=== PATIENT | male | born 1940 | race Caucasian/White ===

== ENCOUNTER → 2022-01-25 | Outpatient (CLI) | payer MEDICARE ==
--- NOTE | 2022-01-26 07:57 | US ---
EXAMINATION TYPE: US scrotum with doppler. Grayscale and color Doppler Duplex imaging performed of shruti maciel scrotum. DATE OF EXAM: 01/25/2022 COMPARISON: NONE CLINICAL HISTORY: N49.2 swelling of scrotum. Patient states feeling a lump left lateral teste x 3 wee ks. EXAM MEASUREMENTS: TESTICLES: Right Testicle: 3.2 x 3.6 x 3.1 cm Left Testicle: 4.1 x 3.3 x 2.4 cm EPIDIDYMIS HEAD: Right Epididymis: 0.7 x 0.7 x 0.7 cm Left Epididymis: 1.2 x 0.9 x 1.2 cm Doppler performed to assess for testicular vascularity; good bilateral color flow and waveforms are s een. There is no evidence of testicular torsion. Presence of hydroceles: Right Presence of varicoceles: Left inferior Right epididymal cyst = 0.3 x 0.2 x 0.2 cm. Left epididymis cyst = 0.6 x 0.6 x 0.5 cm. At area of patient concern, epididymal head and cyst was visualized IMPRESSION: Epididymal head cysts. Otherwise unremarkable study.
== END | disposition home or self-care (01) ==
LOC: RADUSWWP 15:06
PROVIDERS: ATTEND Internal Medicine
DX: N50.3 Cyst of epididymis (principal)
CPT/HCPCS: 76870; 93975

== ENCOUNTER → 2022-06-08 | Outpatient (CLI) | payer MEDICARE ==
--- NOTE | 2022-06-08 13:53 | US ---
EXAMINATION TYPE: US scrotum with doppler. Grayscale and color Doppler Duplex imaging performed of t he scrotum. DATE OF EXAM: 06/08/2022 COMPARISON: NONE CLINICAL HISTORY: N50.89 DISORDERS OF THE MALE GENITAL ORGANS. EXAM MEASUREMENTS: TESTICLES: Right Testicle: 3.6 x 1.9 x 2.1 cm Left Testicle: 4.1 x 2.3 x 3.3 cm EPIDIDYMIS HEAD: Right Epididymis: 0.9 x 0.7 cm, small cysts noted bilaterally. Left Epididymis: 1.0 x 0.9 cm Doppler performed to assess for testicular vascularity; good bilateral color flow and waveforms are s een. There is no evidence of testicular torsion. Presence of hydroceles: small amount of fluid around right testicle. Presence of varicoceles: none appreciated. IMPRESSION: 1 right-sided epididymal cyst. 2. Small amount of right-sided hydrocele.
== END | disposition home or self-care (01) ==
LOC: RADUSWWP 09:26
PROVIDERS: ATTEND Urology
DX: N50.3 Cyst of epididymis (principal); N43.3 Hydrocele, unspecified; N50.89 Other specified disorders of the male genital organs
CPT/HCPCS: 76870; 93975

== ENCOUNTER 2022-12-25 10:36 | Inpatient (IN) | payer MEDICARE ==
[2022-12-25 11:17] LABS: Basophils % (A) 0 %; Eosinophils # (A) 0.3 k/uL (0-0.7); Eosinophils % (A) 3 %; HCT 44.4 % (39.0-53.0); HGB 15.1 gm/dL (13.0-17.5); Lymphocytes # (A) 2.9 k/uL (1.0-4.8); Lymphocytes % (A) 29 %; MCH 36.6 pg (25.0-35.0); MCHC 34.1 g/dL (31.0-37.0); MCV 107.4 fL (80.0-100.0); Macrocytosis Moderate; Mean Platelet Volume 8.8; Monocytes # (A) 0.4 k/uL (0-1.0); Monocytes % (A) 5 %; Neutrophils % (A) 61 %; Platelet Count 211 k/uL (150-450); RBC 4.13 m/uL (4.30-5.90); RDW 14.5 % (11.5-15.5); WBC 9.8 k/uL (3.8-10.6)
[2022-12-25 11:52] LABS: ALT 19 U/L (4-49); AST 25 U/L (17-59); African American GFR (CKD) >90 (>60 ml/min/1.73 sqM); Albumin 4.5 g/dL (3.5-5.0); Alkaline Phosphatase 92 U/L (38-126); Anion Gap 13 mmol/L; Blood Urea Nitrogen 17 mg/dL (9-20); Calcium 8.7 mg/dL (8.4-10.2); Carbon Dioxide 23 mmol/L (22-30); Chloride 103 mmol/L (98-107); Glucose 345 mg/dL (74-99); Non-African American GFR(CKD) >90 (>60 ml/min/1.73 sqM); Potassium 4.6 mmol/L (3.5-5.1); Sodium 139 mmol/L (137-145); Total Protein 7.5 g/dL (6.3-8.2)
[2022-12-25 11:53] LABS: Partial Thromboplastin Time 23.8 sec (22.0-30.0); Prothrombin Time 10.5 sec (9.0-12.0)
--- NOTE | 2022-12-25 12:04 | XR ---
EXAMINATION TYPE: XR chest 2V DATE OF EXAM: 12/25/2022 COMPARISON: NONE TECHNIQUE: PA and lateral views submitted. HISTORY: Cough FINDINGS: The lungs are clear and there is no pneumothorax, pleural effusion, or focal pneumonia. Heart size normal and no overt failure. Osseous structures demonstrate hypertrophic and degenerative changes of the spine. 8mm nodule right lower lobe. Underlying COPD with biapical pleural thickening. Bilateral A C joint arthropathy and apical pleural thickening. IMPRESSION: 1. No acute process. Correlate for COPD with right lower lobe 8 mm nodule. Follow up CT scan could be obtained.
--- NOTE | 2022-12-25 13:14 | ED ---
General Adult HPI - General Chief complaint: Recheck/Abnormal Lab/Rx Stated complaint: sent bt PCP-abn EKG Time Seen by Provider: 12/25/22 10:50 Source: patient Mode of arrival: ambulatory Limitations: no limitations - History of Present Illness Initial comments: 82-year-old male with past medical history of diabetes, hypertension, hyperlipidemia who presents emergency department from the doctor's office. States that he went in today to have his regular checkup. He states his glucose has been high and they are going to adjust his medications. In office he took his vitals and found his heart rate to be high. He denies any chest pain or palpitations. No shortness of breath. Denies history of A. fib. He does not take any blood thinners. Denies history of cardiac stent. No other alleviating, precipitating or modifying factors - Related Data Home Medications Medication Instructions Recorded Confirmed ALPRAZolam [Xanax] 0.5 mg PO DIRECTED PRN 12/25/22 12/25/22 Citrucel Caplets 1 tab PO DAILY 12/25/22 12/25/22 Fluticasone Nasal [place] [Flonase 1 - 2 spr EA NOSTRIL BID PRN 12/25/22 12/25/22 Nasal [place]] Levothyroxine Sodium [Synthroid] 112 mcg PO DAILY 12/25/22 12/25/22 Multivitamins, Thera [Multivitamin 1 tab PO DAILY 12/25/22 12/25/22 (formulary)] Pravastatin Sodium [Pravachol] 40 mg PO HS 12/25/22 12/25/22 calcium polycarbophiL [Fibercon] 625 mg PO DAILY 12/25/22 12/25/22 glipiZIDE [Glucotrol] 10 mg PO TID 12/25/22 12/25/22 lisinopriL [Zestril] 5 mg PO DAILY 12/25/22 12/25/22 metFORMIN HCL [Glucophage] 1,000 mg PO BID 12/25/22 12/25/22 sitaGLIPtin [Januvia] 100 mg PO DAILY 12/25/22 12/25/22 Previous Rx's Medication Instructions Recorded Apixaban [Eliquis] 5 mg PO BID 30 Days #60 tab 12/27/22 Metoprolol Tartrate [Lopressor] 50 mg PO BID 30 Days #60 tab 12/27/22 Allergies Allergy/AdvReac Type Severity Reaction Status Date / Time amoxicillin [From Amoxil] Allergy Rash/Hives Verified 12/25/22 14:07 of face & chest Review of Systems ROS Statement: Those systems with pertinent positive or pertinent negative responses have been documented in the HPI. ROS Other: All systems not noted in ROS Statement are negative. Past Medical History Past Medical History: Diabetes Mellitus, Hyperlipidemia, Hypertension History of Any Multi-Drug Resistant Organisms: None Reported Past Surgical History: Orthopedic Surgery Past Psychological History: No Psychological Hx Reported Smoking Status: Never smoker Past Alcohol Use History: None Reported Past Drug Use History: None Reported - Past Family History Father Family Medical History: Cancer Additional Family Medical History / Comment(s): lung cancer General Exam Limitations: no limitations General appearance: alert, in no apparent distress Head exam: Present: atraumatic, normocephalic, normal inspection Eye exam: Present: normal appearance, PERRL, EOMI. Absent: scleral icterus, conjunctival injection, periorbital swelling ENT exam: Present: normal exam, mucous membranes moist Neck exam: Present: normal inspection. Absent: tenderness, meningismus, lymphadenopathy Respiratory exam: Present: normal lung sounds bilaterally. Absent: respiratory distress, wheezes, rales, rhonchi, stridor Cardiovascular Exam: Present: tachycardia, irregular rhythm, normal heart lindsey nds. Absent: systolic murmur, diastolic murmur, rubs, gallop, clicks GI/Abdominal exam: Present: soft, normal bowel sounds. Absent: distended, tenderness, guarding, rebound, rigid Extremities exam: Present: normal inspection, full ROM, normal capillary refill. Absent: tenderness, pedal edema, joint swelling, calf tenderness Back exam: Present: normal inspection Neurological exam: Present: alert, oriented X3, CN II-XII intact Psychiatric exam: Present: normal affect, normal mood Skin exam: Present: warm, dry, intact, normal color. Absent: rash Course Vital Signs 12/25/22 12/25/22 12/25/22 10:44 11:28 13:45 Temperature 97.6 F Pulse Rate 132 H 151 H Pulse Rate [ 151 H Processing Archivist ] Respiratory 18 18 Rate Blood Pressure 116/77 134/83 O2 Sat by Pulse 98 93 L Oximetry 12/25/22 12/25/22 12/25/22 14:25 15:39 15:59 Temperature Pulse Rate 140 H 147 H 137 H Pulse Rate [ Processing Archivist ] Respiratory 18 18 18 Rate Blood Pressure 155/83 103/65 97/58 O2 Sat by Pulse 96 95 95 Oximetry 12/25/22 16:57 Temperature 98.1 F Pulse Rate 140 H Pulse Rate [ Processing Archivist ] Respiratory 18 Rate Blood Pressure 122/68 O2 Sat by Pulse 94 L Oximetry Medical Decision Making - Medical Decision Making Was pt. sent in by a medical professional or institution (, PA, [employer], urgent care, hospital, or prison...) When possible be specific @ -Patient was sent in by his primary care office Did you speak to anyone other than the patient for history (EMS, parent, family, police, friend...)? What history was obtained from this source @ -No Did you review nursing and triage notes (agree or disagree)? Why? @ -I reviewed and agree with nursing and triage notes Were old charts reviewed (outside hosp., previous admission, EMS record, old EKG, old radiological studies, urgent care reports/EKG's, prison records)? Report findings @ -No old charts were reviewed Differential Diagnosis (chest pain, altered mental status, abdominal pain women, abdominal pain men, vaginal bleeding, weakness, fever, dyspnea, syncope, headache, dizziness, GI bleed, back pain, seizure, CVA, palpatations, mental health, musculoskeletal)? @ -Differential Palpitations Ventricular arrhythmias, atrial arrhythmias, myocardial infarction, anemia, thyrotoxicosis, electrolyte imbalance, hypokalemia, pulmonary embolism, pulmonary disease, drugs, alcohol, anxiety, stress.... This is not meant to be an all-inclusive list. EKG interpreted by me (3pts min.). @ -Yes and demonstrates A. fib with a rate of 152. QRS 93. QTC of 374. Mild ST depression 2, 3, aVF. No acute ST segment elevations X-rays interpreted by me (1pt min.). @ -Yes and demonstrates no acute intrathoracic process CT interpreted by me (1pt min.). @ -None done U/S interpreted by me (1pt. min.). @ -None done What testing was considered but not performed or refused? (CT, X-rays, U/S, labs)? Why? @ -None What meds were considered but not given or refused? Why? @ -None Did you discuss the management of the patient with other professionals (davide morales i.e. , PA, [employer], lab, RT, psych nurse, health and social care teacher, java core developer, teacher, fire control officer, therapeutic case manager)? Give summary @ -Spoke with Dr. trujillo for admission Was smoking cessation discussed for >3mins.? @ -No Was critical care preformed (if so, how long)? @ -Yes, 35 minutes for Cardizem titration Were there social determinants of health that impacted care today? How? (Homelessness, low income, unemployed, alcoholism, drug addiction, transportation, low edu. Level, literacy, decrease access to med. care, [place] [facility], rehab)? @ -No Was there de-escalation of care discussed even if they declined (Discuss DNR or withdrawal of care, Hospice)? DNR status @ -No What co-morbidities impacted this encounter? (DM, HTN, Smoking, COPD, CAD, Cancer, CVA, ARF, Chemo, Hep., AIDS, mental health diagnosis, sleep apnea, morbid obesity)? @ -None Was patient admitted / discharged? Hospital course, mention meds given and route, prescriptions, significant lab abnormalities, going to OR and other pertinent info. @ -Upon arrival patient was placed in room 2. History and physical exam was performed. He is placed on continuous pulse ox and cardiac monitoring. A 12- lead EKG is obtained which demonstrates A. fib with RVR. Laboratory studies are conducted. Chest x-ray is performed. Patient is started on a Cardizem drip. I did recommend admission for new onset A. fib for which the patient was agreeable. He has no contra indications to heparin. Patient awaiting a bed on the floor in stable condition Undiagnosed new problem with uncertain prognosis? @ -Yes Drug Therapy requiring intensive monitoring for toxicity (Heparin, Nitro, Insulin, Cardizem)? @ -Heparin, Cardizem Were any procedures done? @ -No Diagnosis/symptom? @ -New onset A. fib with RVR Acute, or Chronic, or Acute on Chronic? @ -Acute Uncomplicated (without systemic symptoms) or Complicated (systemic symptoms)? @ -Complicated Side effects of treatment? @ -No Exacerbation, Progression, or Severe Exacerbation? @ -No Poses a threat to life or bodily function? How? (Chest pain, [place], [place], pneumonia, PE, COPD, DKA, ARF, appy, cholecystitis, CVA, Diverticulitis, Homicidal, Suicidal, threat to staff... and all critical care pts) @ -Yes patient presents with markedly elevated heart rate - Lab Data Result diagrams: 12/27/22 07:19 12/27/22 07:19 Lab Results 12/25/22 12/25/22 12/25/22 Range/Units 11:04 11:04 11:04 WBC 9.8 (3.8-10.6) k/uL RBC 4.13 L (4.30-5.90) m/uL Hgb 15.1 (13.0-17.5) gm/dL Hct 44.4 (39.0-53.0) % MCV 107.4 H (80.0-100.0) fL MCH 36.6 H (25.0-35.0) pg MCHC 34.1 (31.0-37.0) g/dL RDW 14.5 (11.5-15.5) % Plt Count 211 (150-450) k/uL MPV 8.8 Neutrophils % 61 % Lymphocytes % 29 % Monocytes % 5 % Eosinophils % 3 % Basophils % 0 % Neutrophils # 6.0 (1.3-7.7) k/uL Lymphocytes # 2.9 (1.0-4.8) k/uL Monocytes # 0.4 (0-1.0) k/uL Eosinophils # 0.3 (0-0.7) k/uL Basophils # 0.0 (0-0.2) k/uL Macrocytosis Moderate PT 10.5 (9.0-12.0) sec INR 1.0 (<1.2) APTT 23.8 (22.0-30.0) sec Sodium 139 (137-145) mmol/L Potassium 4.6 (3.5-5.1) mmol/L Chloride 103 (98-107) mmol/L Carbon Dioxide 23 (22-30) mmol/L Anion Gap 13 mmol/L BUN 17 (9-20) mg/dL Creatinine 0.67 (0.66-1.25) mg/dL Est GFR (CKD-EPI)AfAm >90 (>60 ml/min/1.73 sqM) Est GFR (CKD-EPI)NonAf >90 (>60 ml/min/1.73 sqM) Glucose 345 H (74-99) mg/dL Calcium 8.7 (8.4-10.2) mg/dL Total Bilirubin 1.0 (0.2-1.3) mg/dL AST 25 (17-59) U/L ALT 19 (4-49) U/L Alkaline Phosphatase 92 (38-126) U/L Troponin I (0.000-0.034) ng/mL Total Protein 7.5 (6.3-8.2) g/dL Albumin 4.5 (3.5-5.0) g/dL TSH (0.465-4.680) mIU/L 12/25/22 12/25/22 Range/Units 11:04 11:27 WBC (3.8-10.6) k/uL RBC (4.30-5.90) m/uL Hgb (13.0-17.5) gm/dL Hct (39.0-53.0) % MCV (80.0-100.0) fL MCH (25.0-35.0) pg MCHC (31.0-37.0) g/dL RDW (11.5-15.5) % Plt Count (150-450) k/uL MPV Neutrophils % % Lymphocytes % % Monocytes % % Eosinophils % % Basophils % % Neutrophils # (1.3-7.7) k/uL Lymphocytes # (1.0-4.8) k/uL Monocytes # (0-1.0) k/uL Eosinophils # (0-0.7) k/uL Basophils # (0-0.2) k/uL Macrocytosis PT (9.0-12.0) sec INR (<1.2) APTT (22.0-30.0) sec Sodium (137-145) mmol/L Potassium (3.5-5.1) mmol/L Chloride (98-107) mmol/L Carbon Dioxide (22-30) mmol/L Anion Gap mmol/L BUN (9-20) mg/dL Creatinine (0.66-1.25) mg/dL Est GFR (CKD-EPI)AfAm (>60 ml/min/1.73 sqM) Est GFR (CKD-EPI)NonAf (>60 ml/min/1.73 sqM) Glucose (74-99) mg/dL Calcium (8.4-10.2) mg/dL Total Bilirubin (0.2-1.3) mg/dL AST (17-59) U/L ALT (4-49) U/L Alkaline Phosphatase (38-126) U/L Troponin I <0.012 (0.000-0.034) ng/mL Total Protein (6.3-8.2) g/dL Albumin (3.5-5.0) g/dL TSH 2.240 (0.465-4.680) mIU/L Disposition Clinical Impression: Atrial fibrillation with RVR, Hyperglycemia Disposition: ADMITTED IP TO THIS [facility] Condition: Serious Is patient prescribed a controlled substance at d/c from ED?: No Time of Disposition: 13:35 Decision to Admit Reason: Admit from EC Decision Date: 12/25/22 Decision Time: 13:35
[2022-12-25] MEDS ORDERED: DILTIAZEM DRIP BOLUS FROM BAG 1 MG SOLN IV ONE (13:39)
[2022-12-25] MEDS ORDERED: NALOXONE 0.4 MG/ML 1 ML VIAL IV PRN (13:40)
[2022-12-25] MEDS: DILTIAZEM 125 MG in SODIUM CHLORIDE 0.9% 100 ML IV SCH (14:38)
[2022-12-25] MEDS ORDERED: HEPARIN SODIUM 1,000 UN/ML (10ML VL) IV PRN (15:44)
[2022-12-25] MEDS ORDERED: HEPARIN SODIUM 1,000 UN/ML (10ML VL) IV ONE (15:44)
[2022-12-25] MEDS ORDERED: HEPARIN SOD,PORK IN 0.45% NACL 25,000 UNIT in 0.45% NACL 1 250ML.BAG IV SCH (15:45)
[2022-12-25 20:39] LABS: Glucose,Whole Blood 265 mg/dL (70-110)
[2022-12-26] MEDS ORDERED: ACETAMINOPHEN TAB 325 MG TAB PO PRN (02:14)
[2022-12-26] MEDS: DILTIAZEM 125 MG in SODIUM CHLORIDE 0.9% 100 ML IV SCH ×3 (02:34→23:52)
[2022-12-26 05:55] LABS: Glucose,Whole Blood 230 mg/dL (70-110)
[2022-12-26] MEDS: LEVOTHYROXINE 112 MCG TAB PO SCH (06:18)
[2022-12-26] MEDS: INSULIN ASPART (NovoLOG) 100 UNIT/ML VIAL SQ SCH ×4 (06:21→20:54)
[2022-12-26] MEDS: LINAGLIPTIN 5 MG TABLET PO SCH (07:54)
[2022-12-26] MEDS: glipiZIDE 10 MG TAB PO SCH ×3 (07:54→20:53)
--- NOTE | 2022-12-26 07:58 | P.CRDCN ---
History of Present Illness Consult date: 12/26/22 Consult reason: atrial fibrillation (w RVR) History of present illness: History of present illness: This is an 82-year-old male patient with past medical history of diabetes mellitus type 2, hypertension, dyslipidemia, hypothyroidism. Patient was at his PCPs office yesterday as his blood sugars of been high and he was found to have elevated heart rate. Patient was sent into [facility] found to have A. fib with RVR and started on Cardizem drip and heparin drip. Patient states he gets shortness of breath when mowing the lawn but not usually. He has had decrease in exercise endurance over the past weeks to months. Some drip is currently at 10 mg per hour. Patient denies any smoking history, no alcohol history. No history of CVA or TIA. He does state he drinks 2 bottles positive per day and drinks coffee. Telemetry remains in atrial fibrillation running 1 3140 bpm EKG A. fib with RVR 2 Chest x-ray: No acute findings. Troponin negative 1. TSH 2.24. WBC 9.8, hemoglobin 15.1. Blood sugar 345. Home cardiac medications: Aspirin 81 mg daily, lisinopril 5 mg daily, pravastatin 40 mg at bedtime, levothyroxine 112 g daily. Review Of Systems: At the time of my evaluation: Constitutional: No fever, no chills. No weakness, fatigue or lethargy. EENT: No headache. No dizziness. Lungs: No shortness of breath, cough, no sputum production. No wheezing. And on exertion. Cardiovascular: No chest pain, no lower extremity edema. No palpitations. No paroxysmal nocturnal dyspnea. No orthopnea. No lightheadedness or dizziness. No syncopal episodes. Abdominal: No abdominal pain. No nausea, vomiting. No diarrhea. No constipation. No bloody or tarry stools. Genitourinary: No dysuria.. No urinary retention. Musculoskeletal: No myalgias. No muscle weakness, no frequent falls. No back pain. No neck pain. Integumentary: No wounds. No rash. No unusual bruising. Neurologic: No aphasia. No facial droop. No change in mentation. No head injury. No headache. Physical examination: Gen: This is an 82-year-old male. He is resting in bed and appears comfortable and in no acute distress. VS: reviewed HEENT: Head is atraumatic, normocephalic. Pupils equal, round. Sclerae is anicteric. NECK: Supple. No JVD. LUNGS: Clear to auscultation. No wheezes or rhonchi. No intercostal retractions. HEART: Irregular rate and rhythm. ABDOMEN: Soft No tenderness. EXTREMITIES: No pedal edema. No calf tenderness. NEUROLOGICAL: Patient is awake, alert and oriented x3. Assessment: No onset paroxysmal atrial fibrillation with RVR Diabetes mellitus type 2 Hypertension, hypothyroidism Plan: Continue Cardizem drip Keep patient nothing by mouth Discontinue heparin drip and start patient on eliquis 5 mg twice daily Patient for RILEY anddioversion today with Dr. Salcedo Further recommendations to follow based upon clinical course Thank you kindly for this consultation. Nurse practitioner note has been reviewed, I agree with documented findings and plan of care. Patient was seen and examined. Past Medical History Past Medical History: Diabetes Mellitus, Hyperlipidemia, Hypertension History of Any Multi-Drug Resistant Organisms: None Reported Past Surgical History: Orthopedic Surgery, Tonsillectomy Past Anesthesia/Blood Transfusion Reactions: No Reported Reaction Past Psychological History: No Psychological Hx Reported Smoking Status: Never smoker Past Alcohol Use History: None Reported Past Drug Use History: None Reported - Past Family History Father Family Medical History: Cancer Additional Family Medical History / Comment(s): lung cancer Medications and Allergies Home Medications Medication Instructions Recorded Confirmed Type ALPRAZolam [Xanax] 0.5 mg PO DIRECTED PRN 12/25/22 12/25/22 History Aspirin EC [Ecotrin Low Dose] 81 mg PO HS 12/25/22 12/25/22 History Citrucel Caplets 1 tab PO DAILY 12/25/22 12/25/22 History Fluticasone Nasal [place] [Flonase 1 - 2 spr EA NOSTRIL BID PRN 12/25/22 12/25/22 History Nasal [place]] Levothyroxine Sodium [Synthroid] 112 mcg PO DAILY 12/25/22 12/25/22 History Multivitamins, Thera [Multivitamin 1 tab PO DAILY 12/25/22 12/25/22 History (formulary)] Pravastatin Sodium [Pravachol] 40 mg PO HS 12/25/22 12/25/22 History calcium polycarbophiL [Fibercon] 625 mg PO DAILY 12/25/22 12/25/22 History glipiZIDE [Glucotrol] 10 mg PO TID 12/25/22 12/25/22 History lisinopriL [Zestril] 5 mg PO DAILY 12/25/22 12/25/22 History metFORMIN HCL [Glucophage] 1,000 mg PO BID 12/25/22 12/25/22 History sitaGLIPtin [Januvia] 100 mg PO DAILY 12/25/22 12/25/22 History Allergies Allergy/AdvReac Type Severity Reaction Status Date / Time amoxicillin [From Amoxil] Allergy Rash/Hives Verified 12/25/22 14:07 of face & chest Physical Exam Vitals: Vital Signs Temp Pulse Pulse Pulse Resp BP BP 12/26/22 04:00 98.2 F 128 H 16 88/54 12/25/22 23:37 97.2 F L 148 H 16 119/76 12/25/22 19:47 98 F 106 H 16 114/82 12/25/22 17:41 97.6 F 70 18 102/73 12/25/22 16:57 98.1 F 140 H 18 122/68 12/25/22 15:59 137 H 18 97/58 12/25/22 15:39 147 H 18 103/65 12/25/22 14:25 140 H 18 155/83 12/25/22 13:45 151 H 18 134/83 12/25/22 11:28 151 H 12/25/22 10:44 97.6 F 132 H 18 116/77 Pulse Ox 12/26/22 04:00 95 12/25/22 23:37 94 L 12/25/22 19:47 93 L 12/25/22 17:41 98 12/25/22 16:57 94 L 12/25/22 15:59 95 12/25/22 15:39 95 12/25/22 14:25 96 12/25/22 13:45 93 L 12/25/22 11:28 12/25/22 10:44 98 Intake and Output 12/25/22 12/26/22 12/26/22 22:59 06:59 14:59 Intake Total 115.083 166.810 Balance 115.083 166.810 Intake: Intake, IV Titration 5.083 166.810 Amount Diltiazem 125 mg In 5.083 109.167 Sodium Chloride 0.9% 100 ml @ Per Protocol IV .Q0M [facility] Rx#:[id number] Heparin Sod,Pork in 0.45% 57.643 NaCl 25,000 unit In 0.45 % NaCl 1 250ml.bag @ 12 UNITS/KG/HR 9.634 mls/hr IV .Q24H [facility]ANDA Rx#: [id number] Oral 110 Other: Voiding Method Toilet Toilet # Voids 1 Weight 80.286 kg Results 12/25/22 11:04 12/25/22 11:04 Cardiac Enzymes 12/25/22 12/25/22 Range/Units 11:04 11:04 AST 25 (17-59) U/L Troponin I <0.012 (0.000-0.034) ng/mL Coagulation 12/25/22 12/25/22 12/26/22 Range/Units 11:04 22:13 04:20 PT 10.5 (9.0-12.0) sec APTT 23.8 42.4 H 46.1 H (22.0-30.0) sec CBC 12/25/22 Range/Units 11:04 WBC 9.8 (3.8-10.6) k/uL RBC 4.13 L (4.30-5.90) m/uL Hgb 15.1 (13.0-17.5) gm/dL Hct 44.4 (39.0-53.0) % Plt Count 211 (150-450) k/uL Comprehensive Metabolic Panel 12/25/22 Range/Units 11:04 Sodium 139 (137-145) mmol/L Potassium 4.6 (3.5-5.1) mmol/L Chloride 103 (98-107) mmol/L Carbon Dioxide 23 (22-30) mmol/L BUN 17 (9-20) mg/dL Creatinine 0.67 (0.66-1.25) mg/dL Glucose 345 H (74-99) mg/dL Calcium 8.7 (8.4-10.2) mg/dL AST 25 (17-59) U/L ALT 19 (4-49) U/L Alkaline Phosphatase 92 (38-126) U/L Total Protein 7.5 (6.3-8.2) g/dL Albumin 4.5 (3.5-5.0) g/dL Current Medications Generic Name Dose Route Start Last Admin Trade Name Freq PRN Reason Stop Dose Admin Acetaminophen 650 mg 12/26/22 02:14 12/26/22 02:33 Acetaminophen Tab 325 Mg Tab PO 650 mg Q6HR PRN Administration Fever and/ or Pain Alprazolam 0.5 mg 12/26/22 02:16 Alprazolam 0.5 Mg Tab PO DIRECTED PRN Insomnia Aspirin 81 mg 12/26/22 21:00 Aspirin 81 Mg PO HS [facility] Calcium Polycarbophil 625 mg 12/26/22 09:00 Calcium Polycarbophil 625 Mg Tab PO DAILY [facility]MA[facility]D Fluticasone Propionate 1 - 2 spray 12/26/22 09:00 Fluticasone 50mcg/[place] Nasal 16gm EA NOSTRIL BID PRN Allergy Symptoms Glipizide 10 mg 12/26/22 09:00 Glipizide 10 Mg Tab PO TID [facility] Heparin Sodium (Porcine) 0 unit 12/25/22 15:44 Heparin Sodium 1,000 Un/Ml (10ml Vl) IV PER PROTOCOL PRN Low PTT Protocol Diltiazem HCl 125 mg/ Sodium 125 mls @ 0 mls/hr 12/25/22 13:45 12/26/22 02:34 Chloride IV 10 mg/hr .Q0M [facility]ANDA 10 mls/hr Administration Protocol Per Protocol Heparin Sodium/Sodium Chloride 250 mls @ 9.634 mls/hr 12/25/22 15:45 12/25/22 23:03 25,000 unit/ Sodium Chloride IV 14 units/kg/hr .Q24H [facility]DA 11.24 mls/hr Titration Protocol 12 UNITS/KG/HR Insulin Aspart 0 unit 12/26/22 07:30 12/26/22 06:21 Insulin Aspart (Novolog) 100 Unit/Ml Vial SQ 4 unit ACHS [facility]ANDA Administration Protocol Levothyroxine Sodium 112 mcg 12/26/22 06:30 12/26/22 06:18 Levothyroxine 112 Mcg Tab PO 112 mcg DAILY@0630 [facility] Administration Linagliptin 5 mg 12/26/22 09:00 Linagliptin 5 Mg Tablet PO DAILY [facility] Lisinopril 5 mg 12/26/22 09:00 Lisinopril 5 Mg Tab PO DAILY [facility] Metformin HCl 1,000 mg 12/26/22 09:00 Metformin 500 Mg Tab PO BID [facility] Multivitamins 1 each 12/26/22 09:00 Multivitamins, Thera 1 Each Tab PO DAILY [facility] Naloxone HCl 0.2 mg 12/25/22 13:40 Naloxone 0.4 Mg/Ml 1 Ml Vial IV Q2M PRN Opioid Reversal Pravastatin Sodium 40 mg 12/26/22 21:00 Pravastatin Sodium 40 Mg Tab PO HS [facility] Intake and Output 12/25/22 12/26/22 12/26/22 22:59 06:59 14:59 Intake Total 115.083 166.810 Balance 115.083 166.810 Intake: Intake, IV Titration 5.083 166.810 Amount Diltiazem 125 mg In 5.083 109.167 Sodium Chloride 0.9% 100 ml @ Per Protocol IV .Q0M [facility] Rx#:[id number] Heparin Sod,Pork in 0.45% 57.643 NaCl 25,000 unit In 0.45 % NaCl 1 250ml.bag @ 12 UNITS/KG/HR 9.634 mls/hr IV .Q24H [facility] Rx#: [id number] Oral 110 Other: Voiding Method Toilet Toilet # Voids 1 Weight 80.286 kg 12/25/22 11:04 12/25/22 11:04
[2022-12-26] MEDS: lisinopriL 5 MG TAB PO SCH (08:01)
[2022-12-26] MEDS: APIXABAN 5 MG TAB PO SCH ×2 (08:09→20:52)
[2022-12-26] MEDS: MULTIVITAMINS, THERA 1 EACH TAB PO SCH (08:10)
[2022-12-26] MEDS ORDERED: FLUTICASONE 50MCG/SPRAY NASAL 16GM EA NOSTRIL PRN (09:00)
[2022-12-26] MEDS ORDERED: metFORMIN 500 MG TAB PO SCH (09:00)
[2022-12-26] MEDS ORDERED: CITRUCEL PO SCH (09:00)
[2022-12-26] MEDS ORDERED: RX INFO: IV CONTRAST WAS GIVEN 1 EACH MISC MISCELLANE PRN (09:56)
[2022-12-26 11:15] LABS: Glucose,Whole Blood 215 mg/dL (70-110)
[2022-12-26] MEDS ORDERED: BENZOCAINE SPRAY 1 CAN TOPICAL ONE (12:51)
[2022-12-26] MEDS ORDERED: SODIUM CHLORIDE 0.9% 1,000 ML IV ONE (12:55)
[2022-12-26] MEDS ORDERED: ALPRAZolam 0.5 MG TAB PO PRN (13:00)
[2022-12-26] MEDS ORDERED: PROPOFOL 10 MG/ML 20 ML VIAL IV ONE (13:10)
[2022-12-26] MEDS ORDERED: LIDOCAINE 1% INJ 10MG/ML (20 ML MDV) ONE (13:10)
--- NOTE | 2022-12-26 14:10 | CT ---
EXAMINATION TYPE: CT chest w con DATE OF EXAM: 12/26/2022 COMPARISON: Radiograph 12/25/2022 HISTORY: 82-year-old male Lung nodule seen on CXR TECHNIQUE: Contiguous axial scanning of the chest after the administration of 100 ml mL of Isovue 300 . Coronal/sagittal reconstructions performed. CT DLP: 321mGycm. Automatic exposure control utilized for a dose reduction. FINDINGS: Heart upper limits of normal in size without pericardial effusion. Aorta normal caliber with bovine configuration to the aortic arch. Prominent but nonenlarged 9 mm lower right paratracheal lymph node. No thoracic lymphadenopathy by CT size criteria. Moderate upper lung predominant emphysematous change especially paraseptal emphysema. Mild diffuse in terstitial prominence and mild peribronchial thickening. Suspect some hazy areas of dependent atelect asis in the lower lungs. 5 mm right basilar pulmonary nodule, axial image 31. No consolidation or pleural effusion. Tiny hiatal hernia. Visualized upper abdomen shows numerous small layering calculi in the gallbladder . Diverticular change along the left side of the colon. Bones: Extensive DISH mid and lower thoracic spine. IMPRESSION: 1. 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 2. The degree of bronchial wall thickening could reflect a prominent component of chronic bronchitis versus superimposed acute bronchitis. 3. 8mm density seen on radiograph likely corresponds to nipple shadow. However, we do note a 5 mm rig ht basilar pulmonary nodule. 6 month follow-up CT chest to reassess. 4. Tiny hiatal hernia, cholelithiasis, and left-sided colonic diverticulosis.
--- NOTE | 2022-12-26 14:29 | P.TEE ---
Date of Procedure: 12/26/22 Description of Procedure(s): Procedure performed: 1. Transesophageal Echocardiogram with color flow doppler, pulsed wave doppler and continuous wave doppler, 2. Synchronized Cardioversion 3. Sedation anesthesia Indications: New-onset atrial fibrillation with rapid ventricular response. Difficult to control rates with medications. Consent: I have discussed the risks, benefits and alternative therapies for the above-mentioned procedure. The patient has indicated understanding and acceptance of the risks of the procedure. Signed consent was obtained and was placed in the paper chart. Procedural Steps: Timeout was performed in usual fashion. Patient's heart rate, blood pressure, oxygen saturation and ECG were monitored. Benzocaine was sprayed liberally in the back of the throat. Bite block was placed between the jaw. Anesthesia was provided by [employer]. After achieving appropriate moderate conscious sedation, RILEY probe was advanced without difficulty and without any immediate complications to the esophagus. RILEY study was performed with color flow doppler, pulsed wave doppler and continuous wave doppler. The probe was then removed. After confirming that there was no evidence of ventricular thrombus, synchronized cardioversion was performed. Patient tolerated the procedure well. Patient was transferred to the post procedure area in stable and satisfactory condition. Throughout the procedure patient's heart rate, blood pressure, oxygen saturation and ECG were monitored. Complications: none FINDINGS Left Atrium: Normal Left atrial size. No evidence of mass or thrombus seen Left Atrial Appendage: No evidence of thrombus or mass seen in FREDY Inter atrial septum: Intact inter-atrial septum Left Ventricle: Normal global LV size and systolic function Right Atrium: Normal overall RV size Right Ventricle: Normal global RV size and systolic function Aortic Valve: Structurally normal Trileaflet, no significant calcification. No significant stenosis or regurgitation on color doppler assessment. Mitral Valve: Struturally normal. Mild functional mitral regurgitation. Pulmonic Valve: Not well visualized. Tricuspid Valve: Mild tricuspid regurgitation Ascending aorta, Aortic root and Aortic arch: Mild intimal thickening. No evidence of large atheroma or bulky calcification Descending aorta: Mild intimal thickening. CONCLUSION: No evidence of intracardiac thrombus. No evidence of thrombus in left atrium or left atrial appendage Very small left atrial appendage Mild functional mitral regurgitation Mild tricuspid regurgitation Synchronized cardioversion First attempt was made at 150 J. Patient converted to sinus rhythm but only sta yed in sinus for 2 beats. There was a limited return of atrial fibrillation Second and was made with 200 J, there was early return of atrial fibrillation Current M was made with 200 J, there was early return of atrial fibrillation Failed synchronized cardioversion with return of A. fib
[2022-12-26 16:19] LABS: Glucose,Whole Blood 299 mg/dL (70-110)
--- NOTE | 2022-12-26 16:59 | P.HPIM ---
History of Present Illness H&P Date: 12/26/22 Chief Complaint: Atrial fibrillation new onset Bonilla Khan is an 82-year-old male patient who presented to the hospital from his PCP with concerns of elevated heart rate. Patient does report he's noticed increased shortness of breath with activity over the past month this is new for him. Denies any episodes of chest pain. Patient also states his blood sugars have been higher medications were being adjusted. Additional medical history includes diabetes mellitus, hyperlipidemia, hypertension. Chest x-ray completed showing no acute process correlate for COPD with right lower lobe 8.8 mm nodule. EKG completed showing atrial fibrillation with rapid ventricular response. patient was started on IV Cardizem and IV heparin in ER cardiology services were consulted. Initial blood sugars elevated at 265 patient started on sliding scale coverage. Troponin 0.012. TSH level 2.240. Patient denies chest pain or shortness of breath. Patient denies nausea vomiting or diarrhea. Patient denies any urinary burning or frequency Review of Systems Please refer to HPI otherwise unremarkable Past Medical History Past Medical History: Diabetes Mellitus, Hyperlipidemia, Hypertension History of Any Multi-Drug Resistant Organisms: None Reported Past Surgical History: Orthopedic Surgery, Tonsillectomy Past Anesthesia/Blood Transfusion Reactions: No Reported Reaction Past Psychological History: No Psychological Hx Reported Smoking Status: Never smoker Past Alcohol Use History: None Reported Past Drug Use History: None Reported - Past Family History Father Family Medical History: Cancer Additional Family Medical History / Comment(s): lung cancer Medications and Allergies Home Medications Medication Instructions Recorded Confirmed Type ALPRAZolam [Xanax] 0.5 mg PO DIRECTED PRN 12/25/22 12/25/22 History Aspirin EC [Ecotrin Low Dose] 81 mg PO HS 12/25/22 12/25/22 History Citrucel Caplets 1 tab PO DAILY 12/25/22 12/25/22 History Fluticasone Nasal [place] [Flonase 1 - 2 spr EA NOSTRIL BID PRN 12/25/22 12/25/22 History Nasal [place]] Levothyroxine Sodium [Synthroid] 112 mcg PO DAILY 12/25/22 12/25/22 History Multivitamins, Thera [Multivitamin 1 tab PO DAILY 12/25/22 12/25/22 History (formulary)] Pravastatin Sodium [Pravachol] 40 mg PO HS 12/25/22 12/25/22 History calcium polycarbophiL [Fibercon] 625 mg PO DAILY 12/25/22 12/25/22 History glipiZIDE [Glucotrol] 10 mg PO TID 12/25/22 12/25/22 History lisinopriL [Zestril] 5 mg PO DAILY 12/25/22 12/25/22 History metFORMIN HCL [Glucophage] 1,000 mg PO BID 12/25/22 12/25/22 History sitaGLIPtin [Januvia] 100 mg PO DAILY 12/25/22 12/25/22 History Allergies Allergy/AdvReac Type Severity Reaction Status Date / Time amoxicillin [From Amoxil] Allergy Rash/Hives Verified 12/25/22 14:07 of face & chest Physical Exam Vitals: Vital Signs Temp Pulse Pulse Pulse Resp BP BP 12/26/22 07:46 98.2 F 152 H 20 121/88 12/26/22 04:00 98.2 F 128 H 16 88/54 12/25/22 23:37 97.2 F L 148 H 16 119/76 12/25/22 19:47 98 F 106 H 16 114/82 12/25/22 17:41 97.6 F 70 18 102/73 12/25/22 16:57 98.1 F 140 H 18 122/68 12/25/22 15:59 137 H 18 97/58 12/25/22 15:39 147 H 18 103/65 12/25/22 14:25 140 H 18 155/83 12/25/22 13:45 151 H 18 134/83 12/25/22 11:28 151 H 12/25/22 10:44 97.6 F 132 H 18 116/77 Pulse Ox 12/26/22 07:46 97 12/26/22 04:00 95 12/25/22 23:37 94 L 12/25/22 19:47 93 L 12/25/22 17:41 98 12/25/22 16:57 94 L 12/25/22 15:59 95 12/25/22 15:39 95 12/25/22 14:25 96 12/25/22 13:45 93 L 12/25/22 11:28 12/25/22 10:44 98 Intake and Output 12/25/22 12/26/22 12/26/22 22:59 06:59 14:59 Intake Total 115.083 166.810 Balance 115.083 166.810 Intake: Intake, IV Titration 5.083 166.810 Amount Diltiazem 125 mg In 5.083 109.167 Sodium Chloride 0.9% 100 ml @ Per Protocol IV .Q0M [facility] Rx#:[id number] Heparin Sod,Pork in 0.45% 57.643 NaCl 25,000 unit In 0.45 % NaCl 1 250ml.bag @ 12 UNITS/KG/HR 9.634 mls/hr IV .Q24H [facility] Rx#: [id number] Oral 110 Other: Voiding Method Toilet Toilet # Voids 1 Weight 80.286 kg Head normocephalic Neck supple Lungs clear to auscultation bilaterally no wheezing or crackles Heart irregular rate Abdomen is soft nontender nondistended positive bowel sounds no hepatosplenome rabia Extremities no edema Neuro alert and orientated to 3 Results CBC & Chem 7: 12/25/22 11:04 12/25/22 11:04 Labs: Abnormal Lab Results - Last 24 Hours (Table) 12/25/22 12/25/22 12/25/22 Range/Units 11:04 11:04 20:37 RBC 4.13 L (4.30-5.90) m/uL MCV 107.4 H (80.0-100.0) fL MCH 36.6 H (25.0-35.0) pg APTT (22.0-30.0) sec Glucose 345 H (74-99) mg/dL POC Glucose (mg/dL) 265 H (70-110) mg/dL 12/25/22 12/26/22 12/26/22 Range/Units 22:13 04:20 05:54 RBC (4.30-5.90) m/uL MCV (80.0-100.0) fL MCH (25.0-35.0) pg APTT 42.4 H 46.1 H (22.0-30.0) sec Glucose (74-99) mg/dL POC Glucose (mg/dL) 230 H (70-110) mg/dL Thrombosis Risk Factor Assmnt - Choose All That Apply Any of the Below Risk Factors Present?: Yes Each Factor Represents 1 point: Obesity (BMI >25) Each Risk Factor Represents 3 Points: Age 75 years or older Thrombosis Risk Factor Assessment Total Risk Factor Score: 4 Thrombosis Risk Factor Assessment Level: Moderate Risk Assessment and Plan Assessment: 1. New onset atrial fibrillation with rapid ventricular response. Patient was started on heparin and Cardizem plans for cardioversion per cardiology on 12/26/2022 2. Diabetes mellitus type 2 with hyperglycemia. patient started on sliding scale coverage 3. Incidental finding of right lower lobe 8 mm nodule on chest x-ray. CT of chest ordered pulmonary service is consulted 4. History of hyperlipidemia 5. History of essential hypertension DVT prophylaxis heparin drip. GI prophylaxis protonix Cardiology services consulted Patient started on heparin and Cardizem drip Plans for cardioversion today 12/26/2022 per cardiology services Repeat labs ordered Time with Patient: Greater than 30 (Greater than 60% of the total time spent in counseling and coordination of care)
[2022-12-26 20:16] LABS: Glucose,Whole Blood 289 mg/dL (70-110)
[2022-12-26] MEDS: METOPROLOL TARTRATE 50 MG TAB PO SCH (20:53)
[2022-12-26] MEDS ORDERED: ASPIRIN 81 MG PO SCH (21:00)
[2022-12-26] MEDS ORDERED: PRAVASTATIN SODIUM 40 MG TAB PO SCH (21:00)
--- NOTE | 2022-12-27 01:00 | P.CNPUL ---
History of Present Illness Consult date: 12/27/22 Requesting physician: Moira Tatum Reason for consult: abnormal CXR/CT Chief complaint: Exertional shortness of breath, heart palpitations, lightheadedness History of present illness: I am seeing this patient in consultation today 12/27/2022 on the cardiac stepdown unit after he was admitted 2 days ago after being found to have new- onset atrial fibrillation at his primary care provider's office. Patient is an 82-year-old white male with past medical history significant for hypertension, hyperlipidemia, and diabetes mellitus. Apparently, over the last month the patient has been having shortness of breath when exerting himself. This is been associated with intermittent heart palpitations and occasional lightheadedness. Activities such as mowing his lawn make him short of breath. He says he has to take several breaks to finish, and this is not normal for him. He denies any chest pain, syncope, lower extremity edema. He was at his primary care provider's office, Dr. Tatum, two days ago. He was found to be in atrial fibrillation with rapid ventricular rate. Denies any history of atrial fibrillation. He was then sent to the emergency room. On arrival, he had a chest x-ray which incidentally found an 8 mm right lower lobe density later felt to be nipple shadowing. Follow-up chest CT with contrast did show a 5 mm right basilar pulmonary nodule. Recommended follow-up in 3-6 months. There were also moderate upper lobe lung predominant emphysematous changes and bronchial wall thickening which could reflect chronic bronchitis for superimposed acute bronchitis. Patient denies any cough, chest pain, hemoptysis. He denies any fevers. Denies history of COPD or asthma. Patient did have a transesophageal echocardiogram yesterday with synchronized cardioversion. Ultimately, the patient failed to convert into sinus rhythm. We were consulted yesterday for the above-mentioned solitary pulmonary nodule. Patient admits remote smoking history, quiting over 20 years ago. Denies personal history of cancer. Patient is currently lying in bed, on room air, in no acute distress. He remains in atrial fibrillation with rapid ventricular rate. Cardizem is currently infusing at 10 mg per hour. He is anticoagulated now on Eliquis. Most recent CBC from 2 days ago was unremarkable. Patient's BMP from 2 days ago was also unremarkable. He is hyperglycemic. Patient remains tachycardic. Blood pressure is normotensive. He is being monitored on the cardiac stepdown unit. Review of Systems REVIEW OF SYSTEMS: CONSTITUTIONAL: Denies any recent significant weight loss or weight gain. EYES: Denies change in vision. EARS, NOSE, MOUTH, THROAT: Denies headaches, denies sore throat. CARDIOVASCULAR: See HPI RESPIRATORY: Denies cough, congestion or hemoptysis. Admits exertional shortness of breath as described in HPI GASTROINTESTINAL: Denies change in appetite, abdominal pain, nausea and vomiting, or diarrhea GENITOURINARY: Denies hematuria, denies infections. MUSKULOSKELETAL: Denies pain, denies swelling. INTEGUMENTARY: Denies rash, denies eczema. NEUROLOGICAL: Denies recent memory loss, no recent seizure activity. PSYCHIATRIC: Denies anxiety, denies depression. HEMATOLOGIC/LYMPHATIC: Denies anemia, denies enlarged lymph node Past Medical History Past Medical History: Diabetes Mellitus, Hyperlipidemia, Hypertension History of Any Multi-Drug Resistant Organisms: None Reported Past Surgical History: Orthopedic Surgery, Tonsillectomy Past Anesthesia/Blood Transfusion Reactions: No Reported Reaction Past Psychological History: No Psychological Hx Reported Smoking Status: Never smoker Past Alcohol Use History: None Reported Past Drug Use History: None Reported - Past Family History Father Family Medical History: Cancer Additional Family Medical History / Comment(s): lung cancer Medications and Allergies Home Medications Medication Instructions Recorded Confirmed Type ALPRAZolam [Xanax] 0.5 mg PO DIRECTED PRN 12/25/22 12/25/22 History Aspirin EC [Ecotrin Low Dose] 81 mg PO HS 12/25/22 12/25/22 History Citrucel Caplets 1 tab PO DAILY 12/25/22 12/25/22 History Fluticasone Nasal [place] [Flonase 1 - 2 spr EA NOSTRIL BID PRN 12/25/22 12/25/22 History Nasal [place]] Levothyroxine Sodium [Synthroid] 112 mcg PO DAILY 12/25/22 12/25/22 History Multivitamins, Thera [Multivitamin 1 tab PO DAILY 12/25/22 12/25/22 History (formulary)] Pravastatin Sodium [Pravachol] 40 mg PO HS 12/25/22 12/25/22 History calcium polycarbophiL [Fibercon] 625 mg PO DAILY 12/25/22 12/25/22 History glipiZIDE [Glucotrol] 10 mg PO TID 12/25/22 12/25/22 History lisinopriL [Zestril] 5 mg PO DAILY 12/25/22 12/25/22 History metFORMIN HCL [Glucophage] 1,000 mg PO BID 12/25/22 12/25/22 History sitaGLIPtin [Januvia] 100 mg PO DAILY 12/25/22 12/25/22 History Allergies Allergy/AdvReac Type Severity Reaction Status Date / Time amoxicillin [From Amoxil] Allergy Rash/Hives Verified 12/25/22 14:07 of face & chest Physical Exam Vitals: Vital Signs Temp Pulse Pulse Resp BP Pulse Ox 12/26/22 20:00 98.1 F 147 H 18 118/72 96 12/26/22 16:05 98.0 F 144 H 20 116/71 93 L 12/26/22 14:45 134 H 12/26/22 14:11 134 H 16 118/77 98 12/26/22 13:49 132 H 12 104/71 100 12/26/22 12:58 112 H 11 L 131/83 98 12/26/22 11:45 145 H 20 114/72 96 12/26/22 07:46 98.2 F 152 H 20 121/88 97 12/26/22 04:00 98.2 F 128 H 16 88/54 95 Intake and Output 12/26/22 12/26/22 12/27/22 14:59 22:59 06:59 Intake Total 94.833 110 97.5 Balance 94.833 110 97.5 Intake: Intake, IV Titration 94.833 97.5 Amount Diltiazem 125 mg In 94.833 97.5 Sodium Chloride 0.9% 100 ml @ Per Protocol IV .Q0M [facility] Rx#:[id number] Oral 110 Other: Voiding Method Toilet Toilet # Voids 1 2 GENERAL EXAM: Alert, 82-year-old white male appearing stated age, comfortable in no apparent distress. HEAD: Normocephalic and atraumatic EYES: Normal reaction of pupils, equal size. NOSE: Clear with pink turbinates. THROAT: No erythema or exudates. NECK: No masses, no JVD. CHEST: No chest wall deformity. LUNGS: Equal air entry with no crackles, wheeze, rhonchi or dullness. On room air. No conversational dyspnea or accessory muscle use.. CVS: S1 and S2 normal with no audible murmur, irregular rhythm. No extra heart sounds. Heart rate currently 142 bpm ABDOMEN: No hepatosplenomegaly, active bowel sounds, no guarding or rigidity. SPINE: No scoliosis or deformity SKIN: No rashes CENTRAL NERVOUS SYSTEM: No focal deficits, tone is normal in all 4 extremities. EXTREMITIES: There is no peripheral edema, clubbing, or cyanosis. Peripheral pulses are intact. Results - Laboratory Findings CBC and BMP: 12/25/22 11:04 12/25/22 11:04 PT/INR, D-dimer PT 10.5 sec (9.0-12.0) 12/25/22 11:04 INR 1.0 (<1.2) 12/25/22 11:04 Abnormal lab findings: Abnormal Labs 12/25/22 12/25/22 12/25/22 11:04 11:04 20:37 RBC 4.13 L MCV 107.4 H MCH 36.6 H APTT Glucose 345 H POC Glucose (mg/dL) 265 H 12/25/22 12/26/22 12/26/22 22:13 04:20 05:54 RBC MCV MCH APTT 42.4 H 46.1 H Glucose POC Glucose (mg/dL) 230 H 12/26/22 12/26/22 12/26/22 11:13 16:17 20:15 RBC MCV MCH APTT Glucose POC Glucose (mg/dL) 215 H 299 H 289 H - Diagnostic Findings Chest x-ray: image reviewed CT scan - chest: image reviewed Assessment and Plan Assessment: New-onset atrial fibrillation with rapid ventricular rate, status/post failed cardioversion Benign essential hypertension Hyperlipidemia Diabetes mellitus type 2 GERD without esophagitis Solitary pulmonary nodule, measuring [address], right basilar location Remote ex-tobacco smoker Plan: Patient's medications, labs, imaging reviewed Cardizem currently infusing at 10 mg per hour Anticoagulated on Eliquis Recommend outpatient follow-up in 3-6 months in regard to solitary pulmonary nodule Patient's exertional dyspnea seems to be cardiac related Cardiology is managing patient's atrial fibrillation We will continue to see as needed I have personally seen and examined the patient, performed the documentation and the assessment and plan as written. Number of minutes spent on the visit:20 Time with Patient: Greater than 30
[2022-12-27] MEDS ORDERED: ALPRAZolam 0.5 MG TAB PO PRN (01:45)
[2022-12-27 02:24] VITALS: RESP 16
[2022-12-27 05:41] LABS: Glucose,Whole Blood 216 mg/dL (70-110)
[2022-12-27] MEDS ORDERED: AMINOPHYLLINE 500 MG/20 ML VIAL IV PRN (06:00)
[2022-12-27] MEDS ORDERED: REGADENOSON 0.4 MG/5 ML SYRINGE IV PRN (06:00)
[2022-12-27] MEDS ORDERED: CAFFEINE CITRATE 60 MG/3 ML VIAL IV PRN (06:00)
[2022-12-27] MEDS: INSULIN ASPART (NovoLOG) 100 UNIT/ML VIAL SQ SCH ×2 (06:26→12:59)
[2022-12-27] MEDS: METOPROLOL TARTRATE 50 MG TAB PO SCH (06:26)
[2022-12-27] MEDS: LEVOTHYROXINE 112 MCG TAB PO SCH (06:27)
[2022-12-27] MEDS ORDERED: PANTOPRAZOLE 40 MG TABLET PO SCH (07:30)
[2022-12-27 07:44] VITALS: BP 104/68; PULSE 70; TEMP 98.3
[2022-12-27 08:17] LABS: Basophils % (A) 0 %; Eosinophils # (A) 0.4 k/uL (0-0.7); Eosinophils % (A) 5 %; HCT 35.6 % (39.0-53.0); HGB 12.6 gm/dL (13.0-17.5); Lymphocytes # (A) 2.4 k/uL (1.0-4.8); Lymphocytes % (A) 27 %; MCH 37.9 pg (25.0-35.0); MCHC 35.4 g/dL (31.0-37.0); Macrocytosis Moderate; Mean Platelet Volume 8.1; Monocytes # (A) 0.5 k/uL (0-1.0); Monocytes % (A) 6 %; Neutrophils # (A) 5.4 k/uL (1.3-7.7); Neutrophils % (A) 61 %; Platelet Count 199 k/uL (150-450); RBC 3.33 m/uL (4.30-5.90)
[2022-12-27 08:47] LABS: ALT 14 U/L (4-49); AST 17 U/L (17-59); African American GFR (CKD) >90 (>60 ml/min/1.73 sqM); Albumin 3.4 g/dL (3.5-5.0); Alkaline Phosphatase 61 U/L (38-126); Anion Gap 6 mmol/L; Blood Urea Nitrogen 15 mg/dL (9-20); Calcium 8.3 mg/dL (8.4-10.2); Carbon Dioxide 24 mmol/L (22-30); Chloride 106 mmol/L (98-107); Glucose 217 mg/dL (74-99); Non-African American GFR(CKD) >90 (>60 ml/min/1.73 sqM); Potassium 4.2 mmol/L (3.5-5.1); Sodium 136 mmol/L (137-145); Total Bilirubin 1.2 mg/dL (0.2-1.3); Total Protein 5.8 g/dL (6.3-8.2)
[2022-12-27] MEDS: APIXABAN 5 MG TAB PO SCH (09:21)
[2022-12-27] MEDS: glipiZIDE 10 MG TAB PO SCH (09:21)
[2022-12-27] MEDS: LINAGLIPTIN 5 MG TABLET PO SCH (09:22)
[2022-12-27] MEDS: MULTIVITAMINS, THERA 1 EACH TAB PO SCH (09:22)
[2022-12-27] MEDS: lisinopriL 5 MG TAB PO SCH (09:22)
--- NOTE | 2022-12-27 09:41 | P.PN ---
Subjective Progress Note Date: 12/27/22 Progress note 12/27/2022 Patient underwent RILEY cardioversion yesterday which was unsuccessful. This morning patient converted to sinus rhythm on Cardizem drip. Currently he is hemodynamics stable as eyes any other cardiac symptoms. His hemoglobin is slightly lower as compared to yesterday. History of present illness: This is an 82-year-old male patient with past medical history of diabetes mellitus type 2, hypertension, dyslipidemia, hypothyroidism. Patient was at his PCPs office yesterday as his blood sugars of been high and he was found to have elevated heart rate. Patient was sent into [facility] found to have A. fib with RVR and started on Cardizem drip and heparin drip. Patient states he gets shortness of breath when mowing the lawn but not usually. He has had decrease in exercise endurance over the past weeks to months. Some drip is currently at 10 mg per hour. Patient denies any smoking history, no alcohol history. No history of CVA or TIA. He does state he drinks 2 bottles positive per day and drinks coffee. Telemetry remains in atrial fibrillation running 1 3140 bpm EKG A. fib with RVR 2 Chest x-ray: No acute findings. Troponin negative 1. TSH 2.24. WBC 9.8, hemoglobin 15.1. Blood sugar 345. Home cardiac medications: Aspirin 81 mg daily, lisinopril 5 mg daily, pravastatin 40 mg at bedtime, levothyroxine 112 g daily. Physical examination: Gen: This is an 82-year-old male. He is resting in bed and appears comfortable and in no acute distress. VS: reviewed HEENT: Head is atraumatic, normocephalic. Pupils equal, round. Sclerae is anict violet. NECK: Supple. No JVD. LUNGS: Clear to auscultation. No wheezes or rhonchi. No intercostal r etractions. HEART: regular rate and rhythm. ABDOMEN: Soft No tenderness. EXTREMITIES: No pedal edema. No calf tenderness. NEUROLOGICAL: Patient is awake, alert and oriented x3. Assessment: New onset paroxysmal atrial fibrillation with RVR Diabetes mellitus type 2 Hypertension, hypothyroidism Solitary lung nodule right base 5 mm Plan: Patient converted to normal sinus rhythm this morning. Discontinue Cardizem drip. Continue metoprolol 50 mg twice a day. Continue lisinopril 5 mg daily Continue Eliquis 5 mg twice a day Continue statin No need for aspirin Outpatient nuclear stress test Patient's hemoglobin dropped to 12.5 from 14 yesterday. There is no active signs of bleeding. Patient is scheduled to be discharged from [facility] standpoint. Please provide patient a prescription to check his CBC in next 3 to 4 days. Outpatient follow-up with Dr. Salcedo Objective - Vital Signs Vital signs: Vital Signs Temp 98.3 F 12/27/22 07:41 Pulse 70 12/27/22 07:41 Resp 16 12/27/22 07:41 BP 104/68 12/27/22 07:41 Pulse Ox 95 12/27/22 04:00 FiO2 Intake & Output 12/26/22 12/27/22 12/27/22 18:59 06:59 18:59 Intake Total 204.833 117.667 Balance 204.833 117.667 Intake: Intake, IV Titration 94.833 117.667 Amount Diltiazem 125 mg In 94.833 117.667 Sodium Chloride 0.9% 100 ml @ Per Protocol IV .Q0M [facility] Rx#:[id number] Oral 110 Other: Voiding Method Toilet Toilet # Voids 2 1 - Labs CBC & Chem 7: 12/27/22 07:19 12/27/22 07:19 Labs: Abnormal Lab Results - Last 24 Hours (Table) 12/26/22 12/26/22 12/26/22 Range/Units 11:13 16:17 20:15 RBC (4.30-5.90) m/uL Hgb (13.0-17.5) gm/dL Hct (39.0-53.0) % MCV (80.0-100.0) fL MCH (25.0-35.0) pg Sodium (137-145) mmol/L Creatinine (0.66-1.25) mg/dL Glucose (74-99) mg/dL POC Glucose (mg/dL) 215 H 299 H 289 H (70-110) mg/dL Calcium (8.4-10.2) mg/dL Total Protein (6.3-8.2) g/dL Albumin (3.5-5.0) g/dL 12/27/22 12/27/22 12/27/22 Range/Units 05:40 07:19 07:19 RBC 3.33 L (4.30-5.90) m/uL Hgb 12.6 L (13.0-17.5) gm/dL Hct 35.6 L (39.0-53.0) % MCV 107.0 H (80.0-100.0) fL MCH 37.9 H (25.0-35.0) pg Sodium 136 L (137-145) mmol/L Creatinine 0.62 L (0.66-1.25) mg/dL Glucose 217 H (74-99) mg/dL POC Glucose (mg/dL) 216 H (70-110) mg/dL Calcium 8.3 L (8.4-10.2) mg/dL Total Protein 5.8 L (6.3-8.2) g/dL Albumin 3.4 L (3.5-5.0) g/dL
--- NOTE | 2022-12-27 09:53 | CA ---
Transthoracic Echo Report Name: Bonilla Khan Age: 82 Gender: M : 1940 Exam Date: 12/26/2022 13:41 Exam Location: [facility] Ht (in): 58 Wt (lb): 160 Ordering Physician: Carmen Carnes Attending/Referring Phys: [id number], Trice [employer] Marii Cook RDCS Procedure CPT: Indications: LVF Cardiac Hx: Technical Quality: Fair Contrast 1: Total Dose (mL): Contrast 2: Total Dose (mL): MEASUREMENTS (Male / Female) Normal Values 2D ECHO LV Diastolic Diameter PLAX 4.0 cm 4.2 - 5.9 / 3.9 - 5.3 cm LV Systolic Diameter PLAX 3.2 cm IVS Diastolic Thickness 1.2 cm 0.6 - 1.0 / 0.6 - 0.9 cm LVPW Diastolic Thickness 1.5 cm 0.6 - 1.0 / 0.6 - 0.9 cm LV Relative Wall Thickness 0.7 RV Internal Dim ED PLAX 2.9 cm LA Volume 67.4 cm??? 18 - 58 / 22 - 52 cm??? LA Volume Index 38.3 cm???/m??? 16 - 28 cm???/m??? DOPPLER AV Peak Velocity 111.9 cm/s AV Peak Gradient 5.0 mmHg AV Mean Velocity 67.8 cm/s AV Mean Gradient 2.2 mmHg AV Velocity Time Integral 15.0 cm LVOT Peak Velocity 75.9 cm/s LVOT Peak Gradient 2.3 mmHg LVOT Velocity Time Integral 13.1 cm MV Area PHT 6.2 cm??? Mitral E Point Velocity 92.9 cm/s Mitral A Point Velocity 0.4 cm/s Mitral E to A Ratio 247.9 MV Deceleration Time 122.3 ms MV E' Velocity 8.1 cm/s Mitral E to MV E' Ratio 11.5 TR Peak Velocity 226.2 cm/s TR Peak Gradient 20.5 mmHg Right Ventricular Systolic Press 25.1 mmHg FINDINGS Left Ventricle Mildly increased left ventricular wall thickness. Left ventricular cavity size normal. Reduced global left ventricular systolic function. Left ventricular ejection fraction is estimated at 30-35 %. Right Ventricle Normal right ventricular size and function. Right ventricular systolic pressure within normal limits. Right Atrium Normal right atrial size. Left Atrium Mildly increased left atrial volume. Mildly increased left atrial area. Mitral Valve Structurally normal mitral valve. Mild mitral annular calcification. Mild mitral regurgitation. Aortic Valve No aortic valve stenosis or regurgitation. Tricuspid Valve Structurally normal tricuspid valve. Mild tricuspid regurgitation. Pulmonic Valve Trace pulmonic regurgitation. Pericardium No pericardial effusion. Aorta Normal size aortic root and proximal ascending aorta. 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 Donald Berumen MD (Electronically Signed) Final Date: 27 December 2022 09:52
[2022-12-27 12:03] LABS: Glucose,Whole Blood 275 mg/dL (70-110)
--- NOTE | 2022-12-27 17:41 | P.DS ---
Providers Date of admission: 12/25/22 13:42 Expected date of discharge: 12/27/22 Attending physician: Moira Tatum Consults: 12/25/22 13:40 Consult Physician Urgent Consulting Provider: [facility] Reason/Comments: new onset afib Do you want consulting provider notified?: Yes 12/26/22 09:54 Consult Physician Routine Consulting Provider: Gifty Casas Reason/Comments: lung nodule seen on chest xray Do you want consulting provider notified?: Yes Primary care physician: Moira [facility] [place] Hospital Course: Diagnosis on discharge: 1. New onset atrial fibrillation with rapid ventricular response. Patient was started on heparin and Cardizem plans for cardioversion per cardiology on 12/26/2022 2. Diabetes mellitus type 2 with hyperglycemia. patient started on sliding scale coverage 3. Incidental finding of right lower lobe 8 mm nodule on chest x-ray. CT of chest ordered pulmonary service is consulted 4. History of hyperlipidemia 5. History of essential hypertension Hospital course: Bonilla Khan is an 82-year-old male patient who presented to the hospital from his PCP with concerns of elevated heart rate. Patient does report he's noticed increased shortness of breath with activity over the past month this is new for him. Denies any episodes of chest pain. Patient also states his blood sugars have been higher medications were being adjusted. Additional medical history includes diabetes mellitus, hyperlipidemia, hypertension. Chest x-ray completed showing no acute process correlate for COPD with right lower lobe 8.8 mm nodule. EKG completed showing atrial fibrillation with rapid ventricular response. patient was started on IV Cardizem and IV heparin in ER cardiology services were consulted. Initial blood sugars elevated at 265 patient started on sliding scale coverage. Troponin 0.012. TSH level 2.240. Patient denies chest pain or shortness of breath. Patient denies nausea vomiting or diarrhea. Patient denies any urinary burning or frequency On 12/27/2022 patient was seen and examined on the telemetry floor he is alert and oriented 3 in no apparent distress he underwent cardioversion and is currently in normal sinus rhythm, recommendation per cardiology is to discharge patient to home dose of metoprolol was increased to 50 mg twice daily, and E liquis 5 mg by mouth twice daily was added to her medication regimen Patient Condition at Discharge: Serious Plan - Discharge Summary Discharge Rx Participant: Yes New Discharge Prescriptions: New Apixaban [Eliquis] 5 mg PO BID 30 Days #60 tab Metoprolol Tartrate [Lopressor] 50 mg PO BID 30 Days #60 tab Continue Multivitamins, Thera [Multivitamin (formulary)] 1 tab PO DAILY ALPRAZolam [Xanax] 0.5 mg PO DIRECTED PRN PRN Reason: Insomnia metFORMIN HCL [Glucophage] 1,000 mg PO BID lisinopriL [Zestril] 5 mg PO DAILY Pravastatin Sodium [Pravachol] 40 mg PO HS Levothyroxine Sodium [Synthroid] 112 mcg PO DAILY sitaGLIPtin [Januvia] 100 mg PO DAILY Citrucel Caplets 1 tab PO DAILY calcium polycarbophiL [Fibercon] 625 mg PO DAILY glipiZIDE [Glucotrol] 10 mg PO TID Fluticasone Nasal [place] [Flonase Nasal [place]] 1 - 2 spr EA NOSTRIL BID PRN PRN Reason: Allergy Symptoms Discontinued Aspirin EC [Ecotrin Low Dose] 81 mg PO HS Discharge Medication List ALPRAZolam [Xanax] 0.5 mg PO DIRECTED PRN 12/25/22 [History] Citrucel Caplets 1 tab PO DAILY 12/25/22 [History] Fluticasone Nasal [place] [Flonase Nasal [place]] 1 - 2 spr EA NOSTRIL BID PRN 12/25/22 [History] Levothyroxine Sodium [Synthroid] 112 mcg PO DAILY 12/25/22 [History] Multivitamins, Thera [Multivitamin (formulary)] 1 tab PO DAILY 12/25/22 [History] Pravastatin Sodium [Pravachol] 40 mg PO HS 12/25/22 [History] calcium polycarbophiL [Fibercon] 625 mg PO DAILY 12/25/22 [History] glipiZIDE [Glucotrol] 10 mg PO TID 12/25/22 [History] lisinopriL [Zestril] 5 mg PO DAILY 12/25/22 [History] metFORMIN HCL [Glucophage] 1,000 mg PO BID 12/25/22 [History] sitaGLIPtin [Januvia] 100 mg PO DAILY 12/25/22 [History] Apixaban [Eliquis] 5 mg PO BID 30 Days #60 tab 12/27/22 [Rx] Metoprolol Tartrate [Lopressor] 50 mg PO BID 30 Days #60 tab 12/27/22 [Rx] Follow up Appointment(s)/Referral(s): Bhavik Salcedo MD [Medical Doctor] - 1 Week (Office to call with appointment date and time.) Moira Tatum MD [Primary Care Provider] - 1-2 days (Please call office to schedule follow up. ) Patient Instructions/Handouts: A-fib (Atrial Fibrillation) (DC), Blood Thinners (DC) Discharge Disposition: HOME SELF-CARE
[2022-12-27] MEDS ORDERED: METOPROLOL TARTRATE 25 MG TAB PO SCH (21:00)
== END 2022-12-27 16:36 | disposition home or self-care (01) | DRG 310 ==
LOC: EC 10:36 → 3SCARD 13:42 → UNDODISIN 16:45
PROVIDERS: ADMIT Internal Medicine; ATTEND Internal Medicine
PROC: 5A2204Z Restoration of Cardiac Rhythm, Single (ICD-10-PCS; principal; 2022-12-26 11:55)
PROC: B24BZZ4 Ultrasonography of Heart with Aorta, Transesophageal (ICD-10-PCS; principal; 2022-12-26 11:55)
DX: I48.0 Paroxysmal atrial fibrillation (principal); E11.65 Type 2 diabetes mellitus with hyperglycemia; K21.9 Gastro-esophageal reflux disease without esophagitis; I10 Essential (primary) hypertension; E78.5 Hyperlipidemia, unspecified; R91.1 Solitary pulmonary nodule; E03.9 Hypothyroidism, unspecified; E66.9 Obesity, unspecified; Z68.26 Body mass index [BMI] 26.0-26.9, adult; Z79.84 Long term (current) use of oral hypoglycemic drugs; Z88.0 Allergy status to penicillin; Z79.899 Other long term (current) drug therapy; Z79.890 Hormone replacement therapy; Z79.82 Long term (current) use of aspirin; Z87.891 Personal history of nicotine dependence
CPT/HCPCS: 36415; 71046; 71260; 80053; 84443; 84484; 85025; 85610; 85730; 92960; 93005; 93306; 93312; 93320; 93325; 96365; 96366; 96368; 99285

== ENCOUNTER 2023-03-06 11:36 | Inpatient (IN) | payer MEDICARE ==
--- NOTE | 2023-03-06 12:12 | ED ---
General Adult HPI - General Chief complaint: Shortness of Breath Stated complaint: CHENG Time Seen by Provider: 03/06/23 11:47 Source: patient, RN notes reviewed Mode of arrival: ambulatory Limitations: no limitations - History of Present Illness Initial comments: Patient is a pleasant 82-year-old male presenting to the emergency department with concerns with difficulty breathing. Onset of symptoms was around a week ago. No cough. No fever. No chest pain. Dyspnea does worsen with exertion at times. No leg pain or leg swelling. No history of similar symptoms previously. Patient does admit to having history of atrial fibrillation however denies having any palpitations. - Related Data Home Medications Medication Instructions Recorded Confirmed ALPRAZolam [Xanax] 0.5 mg PO DIRECTED PRN 12/25/22 03/06/23 Citrucel Caplets 1 tab PO DAILY 12/25/22 03/06/23 Levothyroxine Sodium [Synthroid] 112 mcg PO DAILY 12/25/22 03/06/23 Pravastatin Sodium [Pravachol] 40 mg PO HS 12/25/22 03/06/23 glipiZIDE [Glucotrol] 10 mg PO AC-TID 12/25/22 03/06/23 lisinopriL [Zestril] 5 mg PO DAILY 12/25/22 03/06/23 metFORMIN HCL [Glucophage] 1,000 mg PO BID-W/MEALS 12/25/22 03/06/23 sitaGLIPtin [Januvia] 100 mg PO DAILY 12/25/22 03/06/23 Clotrimazole Cream [Lotrimin Cream] 1 applic TOPICAL BID PRN 03/06/23 03/06/23 Metoprolol Tartrate [Lopressor] 50 mg PO BID-W/MEALS 03/06/23 03/06/23 Mv-Min/Folic/K1/Lycopen/Lutein 1 tab PO DAILY 03/06/23 03/06/23 [Centrum Silver Men Tablet] Previous Rx's Medication Instructions Recorded Apixaban [Eliquis] 5 mg PO BID 30 Days #60 tab 12/27/22 Allergies Allergy/AdvReac Type Severity Reaction Status Date / Time amoxicillin [From Amoxil] Allergy Rash/Hives Verified 03/06/23 13:43 of face & chest Review of Systems ROS Statement: Those systems with pertinent positive or pertinent negative responses have been documented in the HPI. ROS Other: All systems not noted in ROS Statement are negative. Constitutional: Denies: fever ENT: Denies: throat pain Respiratory: Reports: as per HPI, dyspnea. Denies: cough Cardiovascular: Reports: as per HPI, palpitations. Denies: chest pain Gastrointestinal: Denies: abdominal pain Past Medical History Past Medical History: Diabetes Mellitus, Hyperlipidemia, Hypertension History of Any Multi-Drug Resistant Organisms: None Reported Past Surgical History: Orthopedic Surgery Past Anesthesia/Blood Transfusion Reactions: No Reported Reaction Past Psychological History: No Psychological Hx Reported Smoking Status: Never smoker Past Alcohol Use History: None Reported Past Drug Use History: None Reported - Past Family History Father Family Medical History: Cancer Additional Family Medical History / Comment(s): lung cancer General Exam Limitations: no limitations General appearance: alert, in no apparent distress Head exam: Present: normocephalic Neck exam: Present: normal inspection Respiratory exam: Present: normal lung sounds bilaterally. Absent: respiratory distress, wheezes Cardiovascular Exam: Present: tachycardia, irregular rhythm Expanded Peripheral pulses: 2+: Radial (R), Radial (L), Dorsalis Pedis (R), Dorsalis Pedis (L) GI/Abdominal exam: Present: soft. Absent: tenderness Extremities exam: Present: normal inspection. Absent: pedal edema, calf tenderness Neurological exam: Present: alert Psychiatric exam: Present: normal affect, normal mood Skin exam: Present: normal color Course Vital Signs 03/06/23 03/06/23 03/06/23 11:38 12:02 12:45 Temperature 96.6 F L Pulse Rate 125 H 158 H Respiratory 18 20 20 Rate Blood Pressure 134/81 120/101 O2 Sat by Pulse 98 99 Oximetry 03/06/23 13:00 Temperature Pulse Rate 110 H Respiratory 20 Rate Blood Pressure 103/50 O2 Sat by Pulse 98 Oximetry EKG Findings - EKG Results: EKG: interpreted by ERMD (Left axis. Septal Q waves. Lateral ST depression. Inferior T wave inversion.) EKG shows: tachycardia, atrial fibrillation Medical Decision Making - Medical Decision Making Was pt. sent in by a medical professional or institution (, PA, BELT AND LINK ASSEMBLY SUPERVISOR, urgent care, hospital, or longterm...) When possible be specific @ -No Did you speak to anyone other than the patient for history (EMS, parent, family, police, friend...)? What history was obtained from this source @ -No Did you review nursing and triage notes (agree or disagree)? Why? @ -I reviewed and agree with nursing and triage notes Were old charts reviewed (outside hosp., previous admission, EMS record, old EKG, old radiological studies, urgent care reports/EKG's, longterm records)? Report findings @ -Previous history of A. fib reviewed Differential Diagnosis (chest pain, altered mental status, abdominal pain women, abdominal pain men, vaginal bleeding, weakness, fever, dyspnea, syncope, headache, dizziness, GI bleed, back pain, seizure, CVA, palpatations, mental health, musculoskeletal)? @ -Differential Palpitations Ventricular arrhythmias, atrial arrhythmias, myocardial infarction, anemia, thyrotoxicosis, electrolyte imbalance, hypokalemia, pulmonary embolism, pulmonary disease, drugs, alcohol, anxiety, stress.... This is not meant to be an all-inclusive list. EKG interpreted by me (3pts min.). @ -As above X-rays interpreted by me (1pt min.). @ -Chest x-ray shows no acute process CT interpreted by me (1pt min.). @ -None done U/S interpreted by me (1pt. min.). @ -None done What testing was considered but not performed or refused? (CT, X-rays, U/S, labs)? Why? @ -None What meds were considered but not given or refused? Why? @ -None Did you discuss the management of the patient with other professionals (professionals i.e. , PA, BELT AND LINK ASSEMBLY SUPERVISOR, lab, RT, psych nurse, social psychologist, cylinder handler, teacher, fundraising officer, case managers)? Give summary @ -Case was discussed with Dr. Tatum who will admit his patient. Was smoking cessation discussed for >3mins.? @ -No Was critical care preformed (if so, how long)? @ -31 minutes critical care time Were there social determinants of health that impacted care today? How? (Homelessness, low income, unemployed, alcoholism, drug addiction, transport ation, low edu. Level, literacy, decrease access to med. care, snf, rehab)? @ -No Was there de-escalation of care discussed even if they declined (Discuss DNR or withdrawal of care, Hospice)? DNR status @ -No What co-morbidities impacted this encounter? (DM, HTN, Smoking, COPD, CAD, Cancer, CVA, ARF, Chemo, Hep., AIDS, mental health diagnosis, sleep apnea, morbid obesity)? @ -None Was patient admitted / discharged? Hospital course, mention meds given and route, prescriptions, significant lab abnormalities, going to OR and other pertinent info. @ -Patient reevaluated and heart rate improved. Heart rate 120 to 1:30. Patient reevaluated and updated. Patient will be admitted with cardiac consult. Undiagnosed new problem with uncertain prognosis? @ -No Drug Therapy requiring intensive monitoring for toxicity (Heparin, Nitro, Insulin, Cardizem)? @ -Patient on Cardizem drip will need to be continued and monitored. Were any procedures done? @ -No Diagnosis/symptom? @ -A. fib with RVR Acute, or Chronic, or Acute on Chronic? @ -Acute Uncomplicated (without systemic symptoms) or Complicated (systemic symptoms)? @ -default Side effects of treatment? @ -No Exacerbation, Progression, or Severe Exacerbation? @ -No Poses a threat to life or bodily function? How? (Chest pain, [place], [place], pneumonia, PE, COPD, DKA, ARF, appy, cholecystitis, CVA, Diverticulitis, Homicidal, Suicidal, threat to staff... and all critical care pts) @ -No - Lab Data Result diagrams: 03/06/23 12:09 03/06/23 12:09 Lab Results 03/06/23 03/06/23 03/06/23 Range/Units 12:09 12:09 12:09 WBC 11.7 H (3.8-10.6) k/uL RBC 4.07 L (4.30-5.90) m/uL Hgb 15.2 (13.0-17.5) gm/dL Hct 44.4 (39.0-53.0) % MCV 108.9 H (80.0-100.0) fL MCH 37.2 H (25.0-35.0) pg MCHC 34.2 (31.0-37.0) g/dL RDW 14.3 (11.5-15.5) % Plt Count 144 L (150-450) k/uL MPV 9.4 Neutrophils % 65 % Lymphocytes % 27 % Monocytes % 5 % Eosinophils % 2 % Basophils % 0 % Neutrophils # 7.5 (1.3-7.7) k/uL Lymphocytes # 3.1 (1.0-4.8) k/uL Monocytes # 0.6 (0-1.0) k/uL Eosinophils # 0.2 (0-0.7) k/uL Basophils # 0.0 (0-0.2) k/uL Manual Slide Review Performed Macrocytosis Marked A PT 11.9 (10.0-12.5) sec INR 1.1 (<1.2) APTT 23.8 (22.0-30.0) sec Sodium 141 (137-145) mmol/L Potassium 4.8 (3.5-5.1) mmol/L Chloride 104 (98-107) mmol/L Carbon Dioxide 23 (22-30) mmol/L Anion Gap 14 mmol/L BUN 17 (9-20) mg/dL Creatinine 0.70 (0.66-1.25) mg/dL Est GFR (CKD-EPI)AfAm >90 (>60 ml/min/1.73 sqM) Est GFR (CKD-EPI)NonAf 89 (>60 ml/min/1.73 sqM) Glucose 299 H (74-99) mg/dL Calcium 9.7 (8.4-10.2) mg/dL Magnesium 1.8 (1.6-2.3) mg/dL Total Bilirubin 1.1 (0.2-1.3) mg/dL AST 45 (17-59) U/L ALT 45 (4-49) U/L Alkaline Phosphatase 109 (38-126) U/L Troponin I (0.000-0.034) ng/mL Total Protein 7.8 (6.3-8.2) g/dL Albumin 4.5 (3.5-5.0) g/dL 03/06/23 Range/Units 12:09 WBC (3.8-10.6) k/uL RBC (4.30-5.90) m/uL Hgb (13.0-17.5) gm/dL Hct (39.0-53.0) % MCV (80.0-100.0) fL MCH (25.0-35.0) pg MCHC (31.0-37.0) g/dL RDW (11.5-15.5) % Plt Count (150-450) k/uL MPV Neutrophils % % Lymphocytes % % Monocytes % % Eosinophils % % Basophils % % Neutrophils # (1.3-7.7) k/uL Lymphocytes # (1.0-4.8) k/uL Monocytes # (0-1.0) k/uL Eosinophils # (0-0.7) k/uL Basophils # (0-0.2) k/uL Manual Slide Review Macrocytosis PT (10.0-12.5) sec INR (<1.2) APTT (22.0-30.0) sec Sodium (137-145) mmol/L Potassium (3.5-5.1) mmol/L Chloride (98-107) mmol/L Carbon Dioxide (22-30) mmol/L Anion Gap mmol/L BUN (9-20) mg/dL Creatinine (0.66-1.25) mg/dL Est GFR (CKD-EPI)AfAm (>60 ml/min/1.73 sqM) Est GFR (CKD-EPI)NonAf (>60 ml/min/1.73 sqM) Glucose (74-99) mg/dL Calcium (8.4-10.2) mg/dL Magnesium (1.6-2.3) mg/dL Total Bilirubin (0.2-1.3) mg/dL AST (17-59) U/L ALT (4-49) U/L Alkaline Phosphatase (38-126) U/L Troponin I <0.012 (0.000-0.034) ng/mL Total Protein (6.3-8.2) g/dL Albumin (3.5-5.0) g/dL Critical Care Time Critical Care Time: Yes Total Critical Care Time: 31 Disposition Clinical Impression: Atrial fibrillation with RVR Disposition: ADMITTED IP TO THIS HOSP Condition: Serious Is patient prescribed a controlled substance at d/c from ED?: No Referrals: Moira Tatum MD [Primary Care Provider] - 1-2 days Time of Disposition: 14:02
[2023-03-06] MEDS: DILTIAZEM 125 MG in SODIUM CHLORIDE 0.9% 100 ML IV SCH (12:20)
[2023-03-06 12:27] LABS: INR 1.1 (<1.2); Partial Thromboplastin Time 23.8 sec (22.0-30.0); Prothrombin Time 11.9 sec (10.0-12.5)
[2023-03-06 12:32] LABS: Basophils % (A) 0 %; Eosinophils # (A) 0.2 k/uL (0-0.7); Eosinophils % (A) 2 %; HCT 44.4 % (39.0-53.0); HGB 15.2 gm/dL (13.0-17.5); Lymphocytes # (A) 3.1 k/uL (1.0-4.8); Lymphocytes % (A) 27 %; MCH 37.2 pg (25.0-35.0); MCHC 34.2 g/dL (31.0-37.0); MCV 108.9 fL (80.0-100.0); Macrocytosis Marked; Mean Platelet Volume 9.4; Monocytes # (A) 0.6 k/uL (0-1.0); Monocytes % (A) 5 %; Neutrophils # (A) 7.5 k/uL (1.3-7.7); Neutrophils % (A) 65 %; Platelet Count 144 k/uL (150-450); RBC 4.07 m/uL (4.30-5.90); RDW 14.3 % (11.5-15.5); WBC 11.7 k/uL (3.8-10.6)
--- NOTE | 2023-03-06 12:41 | XR ---
EXAMINATION TYPE: XR chest 2V DATE OF EXAM: 03/06/2023 COMPARISON: 12/25/2022 HISTORY: Shortness of breath TECHNIQUE: Frontal and lateral views of the chest are obtained. FINDINGS: Scattered senescent parenchymal changes noted. Hyperinflation compatible with COPD. No evidence for infiltrate. No evidence for atelectasis. Heart size is stable. Mediastinal structures are stable and grossly unremarkable. No evidence for hilar prominence. Degenerative changes dorsal spine. IMPRESSION: 1. No evidence for acute pulmonary disease.
[2023-03-06 12:56] LABS: ALT 45 U/L (4-49); AST 45 U/L (17-59); African American GFR (CKD) >90 (>60 ml/min/1.73 sqM); Albumin 4.5 g/dL (3.5-5.0); Alkaline Phosphatase 109 U/L (38-126); Anion Gap 14 mmol/L; Blood Urea Nitrogen 17 mg/dL (9-20); Calcium 9.7 mg/dL (8.4-10.2); Carbon Dioxide 23 mmol/L (22-30); Chloride 104 mmol/L (98-107); Glucose 299 mg/dL (74-99); Magnesium 1.8 mg/dL (1.6-2.3); Non-African American GFR(CKD) 89 (>60 ml/min/1.73 sqM); Potassium 4.8 mmol/L (3.5-5.1); Sodium 141 mmol/L (137-145); Total Bilirubin 1.1 mg/dL (0.2-1.3); Total Protein 7.8 g/dL (6.3-8.2)
[2023-03-06] MEDS ORDERED: NALOXONE 0.4 MG/ML 1 ML VIAL IV PRN (14:03)
[2023-03-06 14:17] LABS: NT-Pro-B-Type Natriuretic Pept 2300 pg/mL
[2023-03-06 15:05] LABS: T4, Free (Free Thyroxine) 1.91 ng/dL (0.78-2.19)
--- NOTE | 2023-03-06 17:06 | P.HPIM ---
History of Present Illness H&P Date: 03/06/23 Bonilla Khan, is an 82-year-old male who presented to [facility] emergency room with a chief complaint of worsening shortness of breath. He was evaluated in the emergency room vital examination on presentation revealed a temperature of 96.6 pulse 158 respiration 18 blood pressure 134/81 pulse ox 98% on room air Laboratory data revealed a white blood count of 11.7 hemoglobin 15.2 platelet count 144 sodium 141 potassium 4.8 chloride 104 CO2 23 BUN 17 creatinine 0.7 and glucose was elevated at 299 troponin was less than 0.012 BNP 2300 TSH 3.3 Testing in the emergency room revealed chest x-ray done in the emergency room revealed no evidence for acute pulmonary disease, EKG done in the emergency room revealed atrial fibrillation with rapid ventricular response with a heart rate o f 148 Patient was admitted to medical floor for further evaluation and treatment Past medical history is significant for history of hypertension, history of hyperlipidemia, history of hypothyroidism, history of ekh-[id number] diabetes mellitus, previous admission in December 2022 with new onset atrial fibrillation at that time patient converted to normal sinus rhythm. On review of systems patient is alert and oriented 3 in no apparent distress there is no fever or chills no headache or dizziness no chest pain no cough no nausea or vomiting no abdominal pain no diarrhea no blood in the stools no burning with urination no frequency or urgency and no hematuria. There is no weakness or numbness in any of the extremities no change in vision speech or gait. Past Medical History Past Medical History: Diabetes Mellitus, Hyperlipidemia, Hypertension History of Any Multi-Drug Resistant Organisms: None Reported Past Surgical History: Orthopedic Surgery Past Anesthesia/Blood Transfusion Reactions: No Reported Reaction Past Psychological History: No Psychological Hx Reported Smoking Status: Never smoker Past Alcohol Use History: None Reported Past Drug Use History: None Reported - Past Family History Father Family Medical History: Cancer Additional Family Medical History / Comment(s): lung cancer Medications and Allergies Home Medications Medication Instructions Recorded Confirmed Type ALPRAZolam [Xanax] 0.5 mg PO DIRECTED PRN 12/25/22 03/06/23 History Citrucel Caplets 1 tab PO DAILY 12/25/22 03/06/23 History Levothyroxine Sodium [Synthroid] 112 mcg PO DAILY 12/25/22 03/06/23 History Pravastatin Sodium [Pravachol] 40 mg PO HS 12/25/22 03/06/23 History glipiZIDE [Glucotrol] 10 mg PO AC-TID 12/25/22 03/06/23 History lisinopriL [Zestril] 5 mg PO DAILY 12/25/22 03/06/23 History metFORMIN HCL [Glucophage] 1,000 mg PO BID-W/MEALS 12/25/22 03/06/23 History sitaGLIPtin [Januvia] 100 mg PO DAILY 12/25/22 03/06/23 History Apixaban [Eliquis] 5 mg PO BID 30 Days #60 tab 12/27/22 03/06/23 Rx Clotrimazole Cream [Lotrimin Cream] 1 applic TOPICAL BID PRN 03/06/23 03/06/23 History Metoprolol Tartrate [Lopressor] 50 mg PO BID-W/MEALS 03/06/23 03/06/23 History Mv-Min/Folic/K1/Lycopen/Lutein 1 tab PO DAILY 03/06/23 03/06/23 History [Centrum Silver Men Tablet] Allergies Allergy/AdvReac Type Severity Reaction Status Date / Time amoxicillin [From Amoxil] Allergy Rash/Hives Verified 03/06/23 13:43 of face & chest Physical Exam Vitals: Vital Signs Temp Pulse Resp BP Pulse Ox 03/06/23 14:00 100 20 108/80 98 03/06/23 13:00 110 H 20 103/50 98 03/06/23 12:45 20 03/06/23 12:02 158 H 20 120/101 99 03/06/23 11:38 96.6 F L 125 H 18 134/81 98 Intake and Output 03/05/23 03/06/23 03/06/23 22:59 06:59 14:59 Other: Weight 79.379 kg In general patient is alert and oriented x 3 in no distress HEENT head normocephalic and atraumatic Neck is supple no JVD no goiter no lymphadenopathy no carotid bruit Chest examination is clear to auscultation no crackles no wheezing Cardiac exam reveals irregular heart sounds S1 and S2, with tachycardia no gallops no murmurs Abdomen is soft nontender no organomegaly with normal bowel sounds Extremity exam reveals no edema no cyanosis or clubbing Neurological examination reveals no gross focal deficits Results CBC & Chem 7: 03/06/23 12:09 03/06/23 12:09 Labs: Abnormal Lab Results - Last 24 Hours (Table) 03/06/23 03/06/23 Range/Units 12: 12:09 WBC 11.7 H (3.8-10.6) k/uL RBC 4.07 L (4.30-5.90) m/uL MCV 108.9 H (80.0-100.0) fL MCH 37.2 H (25.0-35.0) pg Plt Count 144 L (150-450) k/uL Macrocytosis Marked A Glucose 299 H (74-99) mg/dL Assessment and Plan Plan: Atrial fibrillation with rapid ventricular response Previous admission in December 2022 with a new onset atrial fibrillation, patient convert to normal sinus rhythm at that time, he is maintained on Eliquis Underlying history of hypertension Underlying history of hyperlipidemia Underlying history of diabetes mellitus type 2 Underlying history of hypothyroidism
[2023-03-07] MEDS: DILTIAZEM 125 MG in SODIUM CHLORIDE 0.9% 100 ML IV SCH (11:20)
[2023-03-07 14:16] LABS: Glucose,Whole Blood 332 mg/dL (70-110)
[2023-03-07] MEDS ORDERED: DILTIAZEM DRIP BOLUS FROM BAG 1 MG SOLN IV ONE (14:24)
[2023-03-07] MEDS ORDERED: DEXTROSE 5% IN WATER 100 ML with AMIODARONE 150 MG IV ONE (15:00)
[2023-03-07] MEDS ORDERED: AMIODARONE 360 MG in DEXTROSE 5% IN WATER 200 ML IV ONE ×2 (15:10)
[2023-03-07] MEDS: FUROSEMIDE 10 MG/ML 2 ML VIAL IV SCH ×2 (15:13→22:05)
--- NOTE | 2023-03-07 17:00 | P.PN ---
Subjective Progress Note Date: 03/07/23 Bonilla Khan, is an 82-year-old male who presented to [facility] emergency room with a chief complaint of worsening shortness of breath. He was evaluated in the emergency room vital examination on presentation revealed a temperature of 96.6 pulse 158 respiration 18 blood pressure 134/81 pulse ox 98% on room air Laboratory data revealed a white blood count of 11.7 hemoglobin 15.2 platelet count 144 sodium 141 potassium 4.8 chloride 104 CO2 23 BUN 17 creatinine 0.7 and glucose was elevated at 299 troponin was less than 0.012 BNP 2300 TSH 3.3 Testing in the emergency room revealed chest x-ray done in the emergency room revealed no evidence for acute pulmonary disease, EKG done in the emergency room revealed atrial fibrillation with rapid ventricular response with a heart rate of 148 Patient was admitted to medical floor for further evaluation and treatment Past medical history is significant for history of hypertension, history of hyperlipidemia, history of hypothyroidism, history of qdm-rgsgzyf-jpdusgkqa diabetes mellitus, previous admission in December 2022 with new onset atrial fibrillation at that time patient converted to normal sinus rhythm. On review of systems patient is alert and oriented 3 in no apparent distress there is no fever or chills no headache or dizziness no chest pain no cough no nausea or vomiting no abdominal pain no diarrhea no blood in the stools no burning with urination no frequency or urgency and no hematuria. There is no weakness or numbness in any of the extremities no change in vision speech or gait. On 03/07/2023 patient was seen and examined on the telemetry floor, he is alert and oriented 3 in no apparent distress, he states he is feeling better with less shortness of breath, he was evaluated earlier by cardiology, IV Cardizem was discontinued and he was started on IV amiodarone drip, there is no fever or chills no headache or dizziness no chest pain no shortness of breath no cough no nausea or vomiting no abdominal pain no diarrhea and no urinary symptoms, will continue with current care awaiting further recommendation from cardiology. Objective - Vital Signs Vital signs: Vital Signs Temp 98.0 F 03/07/23 09:20 Pulse 106 H 03/07/23 15:32 Resp 18 03/07/23 15:32 BP 93/49 03/07/23 15:32 Pulse Ox 18 L 03/07/23 15:32 FiO2 Intake & Output 03/06/23 03/07/23 03/07/23 18:59 06:59 18:59 Intake Total 115 Balance 115 Weight 79.379 kg Intake: Intake, IV Titration 115 Amount Diltiazem 125 mg In 115 Sodium Chloride 0.9% 100 ml @ 5 MG/HR 5 mls/hr IV .Q24H [facility] Rx#:[id number] - Exam In general patient is alert and oriented x 3 in no distress HEENT head normocephalic and atraumatic Neck is supple no JVD no goiter no lymphadenopathy no carotid bruit Chest examination is clear to auscultation no crackles no wheezing Cardiac exam reveals irregular heart sounds S1 and S2, with tachycardia no gallops no murmurs Abdomen is soft nontender no organomegaly with normal bowel sounds Extremity exam reveals no edema no cyanosis or clubbing Neurological examination reveals no gross focal deficits - Labs CBC & Chem 7: 03/06/23 12:09 03/06/23 12:09 Labs: Abnormal Lab Results - Last 24 Hours (Table) 03/07/23 Range/Units 14:15 POC Glucose (mg/dL) 332 H (70-110) mg/dL Assessment and Plan Plan: Atrial fibrillation with rapid ventricular response Previous admission in December 2022 with a new onset atrial fibrillation, patient convert to normal sinus rhythm at that time, he is maintained on Eliquis Underlying history of hypertension Underlying history of hyperlipidemia Underlying history of diabetes mellitus type 2 Underlying history of hypothyroidism
[2023-03-07] MEDS: glipiZIDE 10 MG TAB PO SCH (17:28)
[2023-03-07] MEDS: metFORMIN 500 MG TAB PO SCH (17:28)
[2023-03-07] MEDS ORDERED: METOPROLOL TARTRATE 50 MG TAB PO SCH (17:30)
[2023-03-07 19:54] LABS: Glucose,Whole Blood 367 mg/dL (70-110)
[2023-03-07] MEDS ORDERED: APIXABAN 5 MG TAB PO SCH (21:00)
[2023-03-07] MEDS: ALPRAZolam 0.5 MG TAB PO PRN (21:28)
[2023-03-07] MEDS: APIXABAN 5 MG TAB PO SCH (21:28)
[2023-03-07] MEDS: METOPROLOL TARTRATE 50 MG TAB PO SCH (21:28)
[2023-03-07] MEDS: PRAVASTATIN SODIUM 40 MG TAB PO SCH (21:28)
[2023-03-07] MEDS ORDERED: DEXTROSE 50% SYRINGE 50 ML IVP PRN ×2 (21:52)
[2023-03-07] MEDS: AMIODARONE 450 MG in DEXTROSE 5% IN WATER 250 ML IV SCH ×2 (22:00)
--- NOTE | 2023-03-07 22:29 | CONS ---
CONSULTATION HISTORY OF PRESENT ILLNESS: Mr. Khan is an 82-year-old gentleman with a history of recently diagnosed atrial fibrillation in November or so. He underwent a transesophageal echo and electrical cardioversion that was unsuccessful at that time. His ejection fraction is in the 30% to 35% range with a global decrease in contractility. He also has hypertension, hyperlipidemia, and type [address] mellitus[address] Herrera in the office. He came into the hospital mainly with increasing sensation of a racing heart, feeling lightheaded and also difficulty in breathing. He was found to be in atrial fibrillation with a rapid ventricular rate. The rate has improved with Cardizem. He seems to be resting comfortably at the time of my evaluation. PAST MEDICAL HISTORY: 1. New onset recent diagnosis of atrial fib in November. 2. Hypertension. 3. Hyperlipidemia. 4. Type 2 diabetes mellitus. MEDICATIONS: Medications at home include, 1. Pravastatin. 2. Glipizide. 3. Lisinopril. 4. Metformin. 5. Januvia. 6. Lopressor 50 mg b.i.d. 7. Apixaban 5 mg b.i.d. PHYSICAL EXAMINATION: VITAL SIGNS: Blood pressure is 118/70, pulse rate 120. HEENT: Unremarkable. Fundus was not examined by me. NECK: Supple. There is JVD of 1 cm. No carotid bruit. HEART: Reveals S1, S2 heard normally with irregular rhythm. Short systolic murmur. LUNGS: Revealed bilateral diminished air entry. ABDOMEN: Soft, nontender. LOWER EXTREMITIES: Reveal diminished pulses. CENTRAL NERVOUS SYSTEM: Normal. EKG revealed atrial fibrillation, moderately rapid ventricular rate, nonspecific ST-T changes. IMPRESSION: 1. Symptomatic atrial fibrillation with rapid ventricular rate. 2. Cardiomyopathy, ejection fraction in the 35% range. Recent echo from November. 3. Hypertension. 4. Diabetes. 5. Hyperlipidemia. RECOMMENDATIONS: I would recommend that we resume all his medications and I will give him IV amiodarone to see if he will convert to sinus rhythm and once IV amiodarone is started and beta ghanshyam is started, we can stop the intravenous Cardizem. I discussed my thoughts in detail with the patient and son. We will continue Elijorge. Thank you very much for the consult. MMODL / IJN: [id number] /
[2023-03-07] MEDS: INSULIN ASPART (NovoLOG) 100 UNIT/ML VIAL SQ SCH (23:18)
[2023-03-08 05:51] LABS: Glucose,Whole Blood 147 mg/dL (70-110)
[2023-03-08] MEDS: INSULIN ASPART (NovoLOG) 100 UNIT/ML VIAL SQ SCH ×4 (06:04→20:22)
[2023-03-08] MEDS: LEVOTHYROXINE 112 MCG TAB PO SCH (06:09)
[2023-03-08] MEDS: metFORMIN 500 MG TAB PO SCH ×2 (06:09→16:30)
[2023-03-08] MEDS: glipiZIDE 10 MG TAB PO SCH ×2 (06:09→16:30)
[2023-03-08] MEDS: lisinopriL 5 MG TAB PO SCH (09:37)
[2023-03-08] MEDS: FUROSEMIDE 40 MG TAB PO SCH (09:37)
[2023-03-08] MEDS: LINAGLIPTIN 5 MG TABLET PO SCH (09:37)
[2023-03-08] MEDS: METOPROLOL TARTRATE 50 MG TAB PO SCH ×2 (09:37→20:22)
[2023-03-08] MEDS: APIXABAN 5 MG TAB PO SCH ×2 (09:38→20:22)
[2023-03-08 09:46] LABS: Basophils % (A) 0 %; Eosinophils # (A) 0.3 k/uL (0-0.7); Eosinophils % (A) 2 %; HCT 40.2 % (39.0-53.0); HGB 13.4 gm/dL (13.0-17.5); Lymphocytes # (A) 2.3 k/uL (1.0-4.8); Lymphocytes % (A) 21 %; MCH 36.8 pg (25.0-35.0); MCHC 33.4 g/dL (31.0-37.0); MCV 110.1 fL (80.0-100.0); Macrocytosis Marked; Monocytes # (A) 0.6 k/uL (0-1.0); Monocytes % (A) 5 %; Neutrophils # (A) 7.4 k/uL (1.3-7.7); Neutrophils % (A) 70 %; Platelet Count 130 k/uL (150-450); RBC 3.65 m/uL (4.30-5.90); RDW 14.5 % (11.5-15.5); WBC 10.7 k/uL (3.8-10.6)
--- NOTE | 2023-03-08 09:54 | P.PN ---
Subjective Progress Note Date: 03/08/23 Bonilla Khan, is an 82-year-old male who presented to [facility] emergency room with a chief complaint of worsening shortness of breath. He was evaluated in the emergency room vital examination on presentation revealed a temperature of 96.6 pulse 158 respiration 18 blood pressure 134/81 pulse ox 98% on room air Laboratory data revealed a white blood count of 11.7 hemoglobin 15.2 platelet count 144 sodium 141 potassium 4.8 chloride 104 CO2 23 BUN 17 creatinine 0.7 and glucose was elevated at 299 troponin was less than 0.012 BNP 2300 TSH 3.3 Testing in the emergency room revealed chest x-ray done in the emergency room revealed no evidence for acute pulmonary disease, EKG done in the emergency room revealed atrial fibrillation with rapid ventricular response with a heart rate of 148 Patient was admitted to medical floor for further evaluation and treatment Past medical history is significant for history of hypertension, history of hyperlipidemia, history of hypothyroidism, history of xwv-ytlrdgm-jrurmvinr diabetes mellitus, previous admission in December 2022 with new onset atrial fibrillation at that time patient converted to normal sinus rhythm. On review of systems patient is alert and oriented 3 in no apparent distress there is no fever or chills no headache or dizziness no chest pain no cough no nausea or vomiting no abdominal pain no diarrhea no blood in the stools no burning with urination no frequency or urgency and no hematuria. There is no weakness or numbness in any of the extremities no change in vision speech or gait. On 03/07/2023 patient was seen and examined on the telemetry floor, he is alert and oriented 3 in no apparent distress, he states he is feeling better with less shortness of breath, he was evaluated earlier by cardiology, IV Cardizem was discontinued and he was started on IV amiodarone drip, there is no fever or chills no headache or dizziness no chest pain no shortness of breath no cough no nausea or vomiting no abdominal pain no diarrhea and no urinary symptoms, will continue with current care awaiting further recommendation from cardiology. On 03/08/2023 patient is alert and oriented 3 patient remains on IV amiodarone per cardiology services. Patient currently on by mouth eliquis. Current vital signs temp 98.5, heart rate 106, respiratory rate 18, blood pressure 96/66 with a pulse ox 93% on room air. Patient complaining of some mild chest discomfort and shortness of breath. Patient denies nausea vomiting or diarrhea. Patient denies any urinary burning or frequency Objective - Vital Signs Vital signs: Vital Signs Temp 98.5 F 03/08/23 04:00 Pulse 106 H 03/08/23 04:00 Resp 18 03/08/23 04:00 BP 96/66 03/08/23 04:00 Pulse Ox 93 L 03/08/23 04:00 FiO2 Intake & Output 03/07/23 03/08/23 03/08/23 18:59 06:59 18:59 Intake Total 115 39 118 Balance 115 39 118 Weight 78.3 kg Intake: Intake, IV Titration 115 39 Amount Diltiazem 125 mg In 115 39 Sodium Chloride 0.9% 100 ml @ 5 MG/HR 5 mls/hr IV .Q24H [facility] Rx#:[id number] Oral 118 Other: Voiding Method Toilet - Exam In general patient is alert and oriented x 3 in no distress HEENT head normocephalic and atraumatic Neck is supple no JVD no goiter no lymphadenopathy no carotid bruit Chest examination is clear to auscultation no crackles no wheezing Cardiac exam reveals irregular heart sounds S1 and S2, with tachycardia no gallops no murmurs Abdomen is soft nontender no organomegaly with normal bowel sounds Extremity exam reveals no edema no cyanosis or clubbing Neurological examination reveals no gross focal deficits - Labs CBC & Chem 7: 03/06/23 12:09 03/06/23 12:09 Labs: Abnormal Lab Results - Last 24 Hours (Table) 03/07/23 03/07/23 03/08/23 Range/Units 14:15 19:52 05:49 POC Glucose (mg/dL) 332 H 367 H 147 H (70-110) mg/dL Assessment and Plan Plan: Atrial fibrillation with rapid ventricular response Previous admission in December 2022 with a new onset atrial fibrillation, patient convert to normal sinus rhythm at that time, he is maintained on Eliquis Underlying history of hypertension Underlying history of hyperlipidemia Underlying history of diabetes mellitus type 2 Underlying history of hypothyroidism Cardiology services following Patient remains on IV amiodarone Patient transition to by mouth Lasix
[2023-03-08 09:59] LABS: ALT 32 U/L (4-49); AST 27 U/L (17-59); African American GFR (CKD) >90 (>60 ml/min/1.73 sqM); Albumin 3.5 g/dL (3.5-5.0); Alkaline Phosphatase 75 U/L (38-126); Anion Gap 12 mmol/L; Blood Urea Nitrogen 19 mg/dL (9-20); Calcium 8.6 mg/dL (8.4-10.2); Carbon Dioxide 26 mmol/L (22-30); Chloride 100 mmol/L (98-107); Glucose 266 mg/dL (74-99); Non-African American GFR(CKD) 84 (>60 ml/min/1.73 sqM); Potassium 4.2 mmol/L (3.5-5.1); Sodium 138 mmol/L (137-145); Total Bilirubin 1.7 mg/dL (0.2-1.3); Total Protein 5.9 g/dL (6.3-8.2)
--- NOTE | 2023-03-08 10:55 | PN ---
PROGRESS NOTE SUBJECTIVE: Mr. Crystal Khan looks and feels better today. He is still in atrial fibrillation, rate is somewhat better. I am recommending that we continue amiodarone IV and beta-ghanshyam. I will switch him from IV to oral Lasix 40 mg q.a.m., ejection fraction of 35%. We will obtain EKG in a.m. We will continue to rate control and Eliquis. OBJECTIVE: VITAL SIGNS: Stable. NECK: JVD 1 cm. No carotid bruit. HEART: S1 and S2 heard normally, irregular rate and rhythm. Short systolic murmur. LUNGS: Revealed diminished air entry. ABDOMEN: Unchanged. EXTREMITIES: Lower extremities unchanged. MMODL / IJN: [id number] /
[2023-03-08 11:39] LABS: Glucose,Whole Blood 263 mg/dL (70-110)
[2023-03-08] MEDS: AMIODARONE 450 MG in DEXTROSE 5% IN WATER 250 ML IV SCH ×2 (13:00)
[2023-03-08 16:16] LABS: Glucose,Whole Blood 256 mg/dL (70-110)
[2023-03-08] MEDS: FUROSEMIDE 10 MG/ML 2 ML VIAL IV SCH (18:41)
[2023-03-08 19:31] LABS: Glucose,Whole Blood 219 mg/dL (70-110)
[2023-03-08] MEDS: PRAVASTATIN SODIUM 40 MG TAB PO SCH (20:22)
[2023-03-09] MEDS: metFORMIN 500 MG TAB PO SCH ×2 (06:23→17:07)
[2023-03-09] MEDS: LEVOTHYROXINE 112 MCG TAB PO SCH (06:23)
[2023-03-09] MEDS: glipiZIDE 10 MG TAB PO SCH ×2 (06:24→17:08)
[2023-03-09] MEDS: INSULIN ASPART (NovoLOG) 100 UNIT/ML VIAL SQ SCH ×4 (06:24→21:02)
[2023-03-09 06:25] LABS: Glucose,Whole Blood 178 mg/dL (70-110)
[2023-03-09] MEDS: METOPROLOL TARTRATE 50 MG TAB PO SCH ×2 (08:57→21:10)
[2023-03-09] MEDS: lisinopriL 5 MG TAB PO SCH (08:57)
[2023-03-09] MEDS: APIXABAN 5 MG TAB PO SCH ×2 (08:57→21:10)
[2023-03-09] MEDS: FUROSEMIDE 40 MG TAB PO SCH (08:57)
[2023-03-09] MEDS: LINAGLIPTIN 5 MG TABLET PO SCH (08:57)
[2023-03-09] MEDS ORDERED: AMIODARONE 200 MG TAB PO SCH (09:00)
[2023-03-09 10:30] LABS: HCT 40.5 % (39.0-53.0); HGB 13.6 gm/dL (13.0-17.5); MCH 37.1 pg (25.0-35.0); MCHC 33.4 g/dL (31.0-37.0); MCV 111.1 fL (80.0-100.0); Macrocytosis Marked; Mean Platelet Volume 9.4; Platelet Count 135 k/uL (150-450); RBC 3.65 m/uL (4.30-5.90); RDW 14.5 % (11.5-15.5); WBC 10.1 k/uL (3.8-10.6)
[2023-03-09 11:56] LABS: Glucose,Whole Blood 421 mg/dL (70-110)
[2023-03-09 12:37] LABS: Lymphocytes # (M) 1.92 k/uL (1.0-4.8); Monocytes # (M) 0.51 k/uL (0-1.0); Neutrophils # (M) 7.27 k/uL (1.3-7.7); Neutrophils % (M) 72 %; Nucleated Red Blood Cells 0 /100 WBC (0-0); Total Cells Counted 100
--- NOTE | 2023-03-09 12:41 | P.PN ---
Subjective Progress Note Date: 03/09/23 Bonilla Khan, is an 82-year-old male who presented to [facility] emergency room with a chief complaint of worsening shortness of breath. He was evaluated in the emergency room vital examination on presentation revealed a temperature of 96.6 pulse 158 respiration 18 blood pressure 134/81 pulse ox 98% on room air Laboratory data revealed a white blood count of 11.7 hemoglobin 15.2 platelet count 144 sodium 141 potassium 4.8 chloride 104 CO2 23 BUN 17 creatinine 0.7 and glucose was elevated at 299 troponin was less than 0.012 BNP 2300 TSH 3.3 Testing in the emergency room revealed chest x-ray done in the emergency room revealed no evidence for acute pulmonary disease, EKG done in the emergency room revealed atrial fibrillation with rapid ventricular response with a heart rate of 148 Patient was admitted to medical floor for further evaluation and treatment Past medical history is significant for history of hypertension, history of hyperlipidemia, history of hypothyroidism, history of oos-aexdksi-cdnipcihe diabetes mellitus, previous admission in December 2022 with new onset atrial fibrillation at that time patient converted to normal sinus rhythm. On review of systems patient is alert and oriented 3 in no apparent distress there is no fever or chills no headache or dizziness no chest pain no cough no nausea or vomiting no abdominal pain no diarrhea no blood in the stools no burning with urination no frequency or urgency and no hematuria. There is no weakness or numbness in any of the extremities no change in vision speech or gait. On 03/07/2023 patient was seen and examined on the telemetry floor, he is alert and oriented 3 in no apparent distress, he states he is feeling better with less shortness of breath, he was evaluated earlier by cardiology, IV Cardizem was discontinued and he was started on IV amiodarone drip, there is no fever or chills no headache or dizziness no chest pain no shortness of breath no cough no nausea or vomiting no abdominal pain no diarrhea and no urinary symptoms, will continue with current care awaiting further recommendation from cardiology. On 03/08/2023 patient is alert and oriented 3 patient remains on IV amiodarone per cardiology services. Patient currently on by mouth eliquis. Current vital signs temp 98.5, heart rate 106, respiratory rate 18, blood pressure 96/66 with a pulse ox 93% on room air. Patient complaining of some mild chest discomfort and shortness of breath. Patient denies nausea vomiting or diarrhea. Patient denies any urinary burning or frequency. On 03/09/2023 patient was seen and examined on the medical floor he is alert and oriented 3 in no apparent distress he stated that his shortness of breath has improved he denies any other symptoms there is no fever or chills no headache or dizziness no chest pain no palpitation no cough no nausea or vomiting no abdominal pain no diarrhea no blood in the stools no burning with urination no frequency or urgency and no hematuria. Patient remains in atrial fibrillation, case was discussed with Dr. Dr. Berumen, plan is for cardioversion in a.m. tomorrow. Objective - Vital Signs Vital signs: Vital Signs Temp 97.7 F 03/09/23 08:00 Pulse 136 H 03/09/23 12:11 Resp 18 03/09/23 12:11 BP 103/64 03/09/23 12:11 Pulse Ox 91 L 03/09/23 12:11 FiO2 Intake & Output 03/08/23 03/09/23 03/09/23 18:59 06:59 18:59 Intake Total 688 180 Output Total 250 1 Balance 438 -1 180 Intake: Intake, IV Titration 250 Amount Amiodarone 450 mg In 250 Dextrose 5% in Water 250 ml @ 0.5 MG/MIN 16.667 mls/hr IV .Q15H [facility] Rx#: [id number] Oral 438 180 Output: Urine 250 1 Other: Voiding Method Toilet Toilet Toilet # Voids 1 - Labs CBC & Chem 7: 03/09/23 08:58 03/08/23 09:02 Labs: Abnormal Lab Results - Last 24 Hours (Table) 03/08/23 03/08/23 03/08/23 Range/Units 08:56 16:14 19:29 RBC (4.30-5.90) m/uL MCV (80.0-100.0) fL MCH (25.0-35.0) pg Plt Count (150-450) k/uL Macrocytosis POC Glucose (mg/dL) 256 H 219 H (70-110) mg/dL Hemoglobin A1c 10.6 H (<=6.0) % 03/09/23 03/09/23 03/09/23 Range/Units 06:14 08:58 11:44 RBC 3.65 L (4.30-5.90) m/uL MCV 111.1 H (80.0-100.0) fL MCH 37.1 H (25.0-35.0) pg Plt Count 135 L (150-450) k/uL Macrocytosis Marked A POC Glucose (mg/dL) 178 H 421 H (70-110) mg/dL Hemoglobin A1c (<=6.0) %
[2023-03-09 14:07] LABS: ALT 29 U/L (4-49); AST 26 U/L (17-59); African American GFR (CKD) >90 (>60 ml/min/1.73 sqM); Albumin 3.6 g/dL (3.5-5.0); Alkaline Phosphatase 74 U/L (38-126); Anion Gap 13 mmol/L; Blood Urea Nitrogen 22 mg/dL (9-20); Calcium 8.6 mg/dL (8.4-10.2); Carbon Dioxide 24 mmol/L (22-30); Chloride 99 mmol/L (98-107); Glucose 288 mg/dL (74-99); Non-African American GFR(CKD) 85 (>60 ml/min/1.73 sqM); Potassium 4.3 mmol/L (3.5-5.1); Sodium 136 mmol/L (137-145); Total Bilirubin 1.6 mg/dL (0.2-1.3); Total Protein 6.2 g/dL (6.3-8.2)
--- NOTE | 2023-03-09 14:37 | P.PN ---
Subjective Progress Note Date: 03/09/23 This is Dennis Mathews NP, I'm dictating on behalf of Dr. Berumen's H&P and A&P. Patient was interviewed and examined. Patient is a pleasant 82-year-old male who presented to the hospital with AMila ruiz with RVR. Unfortunately despite current interventions patient continues to experience atrial fibrillation with rapid ventricular response with a heart rate in the 140s. The patient does report today that he is feeling okay. He does appreciate a mild cough. GENERAL: Well-appearing, well-nourished and in no acute distress. NECK: Supple without JVD or thyromegaly. LUNGS: Breath sounds clear to auscultation bilaterally. Respiration equal and unlabored. No wheezes, rales or rhonchi. HEART: Irregular rate and rhythm without murmurs, rubs or gallops. S1 and S2 heard. EXTREMITIES: Normal range of motion, no edema. No clubbing or cyanosis. Peripheral pulses intact and strong. VITALS: Temp 97.7, pulse 136, respirations 18, blood pressure 103/64, O2 saturation 99% on room air TELEMETRY: Atrial fibrillation with rapid ventricular response LABS: White count 10.1, hemoglobin 13.6, platelets 135, sodium 136, potassium 4.3, BUN 22, creatinine 0.77, calcium 8.6 IMPRESSION: 1. Recent new-onset diagnosis of atrial fibrillation 2. Hypertension 3. Hyperlipidemia 4. Type 2 diabetes PLAN: Start amiodarone 200 mg 3 times a day. Plan for cardioversion tomorrow. Nothing by mouth at midnight. Continue anticoagulation. Further recommendations based on patient's clinical course. Objective - Vital Signs Vital signs: Vital Signs Temp 97.7 F 03/09/23 08:00 Pulse 136 H 03/09/23 14:21 Resp 18 03/09/23 14:21 BP 103/64 03/09/23 12:11 Pulse Ox 91 L 03/09/23 12:11 FiO2 Intake & Output 03/08/23 03/09/23 03/09/23 18:59 06:59 18:59 Intake Total 688 360 Output Total 250 1 Balance 438 -1 360 Intake: Intake, IV Titration 250 Amount Amiodarone 450 mg In 250 Dextrose 5% in Water 250 ml @ 0.5 MG/MIN 16.667 mls/hr IV .Q15H [facility] Rx#: [id number] Oral 438 360 Output: Urine 250 1 Other: Voiding Method Toilet Toilet Toilet # Voids 1 - Labs CBC & Chem 7: 03/09/23 08:58 03/09/23 08:58 Labs: Abnormal Lab Results - Last 24 Hours (Table) 03/08/23 03/08/23 03/08/23 Range/Units 08:56 16:14 19:29 RBC (4.30-5.90) m/uL MCV (80.0-100.0) fL MCH (25.0-35.0) pg Plt Count (150-450) k/uL Macrocytosis Sodium (137-145) mmol/L BUN (9-20) mg/dL Glucose (74-99) mg/dL POC Glucose (mg/dL) 256 H 219 H (70-110) mg/dL Hemoglobin A1c 10.6 H (<=6.0) % Total Bilirubin (0.2-1.3) mg/dL Total Protein (6.3-8.2) g/dL 03/09/23 03/09/23 03/09/23 Range/Units 06:14 08:58 08:58 RBC 3.65 L (4.30-5.90) m/uL MCV 111.1 H (80.0-100.0) fL MCH 37.1 H (25.0-35.0) pg Plt Count 135 L (150-450) k/uL Macrocytosis Marked A Sodium 136 L (137-145) mmol/L BUN 22 H (9-20) mg/dL Glucose 288 H (74-99) mg/dL POC Glucose (mg/dL) 178 H (70-110) mg/dL Hemoglobin A1c (<=6.0) % Total Bilirubin 1.6 H (0.2-1.3) mg/dL Total Protein 6.2 L (6.3-8.2) g/dL 03/09/23 Range/Units 11:44 RBC (4.30-5.90) m/uL MCV (80.0-100.0) fL MCH (25.0-35.0) pg Plt Count (150-450) k/uL Macrocytosis Sodium (137-145) mmol/L BUN (9-20) mg/dL Glucose (74-99) mg/dL POC Glucose (mg/dL) 421 H (70-110) mg/dL Hemoglobin A1c (<=6.0) % Total Bilirubin (0.2-1.3) mg/dL Total Protein (6.3-8.2) g/dL
[2023-03-09 16:30] LABS: Glucose,Whole Blood 174 mg/dL (70-110)
[2023-03-09] MEDS: AMIODARONE 200 MG TAB PO SCH ×2 (17:08→21:10)
[2023-03-09 20:16] LABS: Glucose,Whole Blood 139 mg/dL (70-110)
[2023-03-09] MEDS: PRAVASTATIN SODIUM 40 MG TAB PO SCH (21:10)
[2023-03-09] MEDS: ALPRAZolam 0.5 MG TAB PO PRN (21:10)
[2023-03-10 06:11] LABS: Glucose,Whole Blood 174 mg/dL (70-110)
[2023-03-10] MEDS: metFORMIN 500 MG TAB PO SCH (06:28)
[2023-03-10] MEDS: LEVOTHYROXINE 112 MCG TAB PO SCH (06:29)
[2023-03-10] MEDS: glipiZIDE 10 MG TAB PO SCH (06:29)
[2023-03-10] MEDS: INSULIN ASPART (NovoLOG) 100 UNIT/ML VIAL SQ SCH ×2 (06:29→11:42)
[2023-03-10 07:23] LABS: Glucose,Whole Blood 188 mg/dL (70-110)
[2023-03-10] MEDS ORDERED: PROPOFOL 10 MG/ML 20 ML VIAL IV ONE (07:28)
[2023-03-10] MEDS ORDERED: LACTATED RINGERS 1,000 ML IV ONE (07:29)
[2023-03-10] MEDS: lisinopriL 5 MG TAB PO SCH (08:48)
[2023-03-10] MEDS: APIXABAN 5 MG TAB PO SCH (08:48)
[2023-03-10] MEDS: AMIODARONE 200 MG TAB PO SCH ×2 (08:48→15:10)
[2023-03-10] MEDS: LINAGLIPTIN 5 MG TABLET PO SCH (08:48)
[2023-03-10] MEDS: FUROSEMIDE 40 MG TAB PO SCH (08:49)
[2023-03-10] MEDS: METOPROLOL TARTRATE 50 MG TAB PO SCH (08:49)
--- NOTE | 2023-03-10 10:00 | P.DS ---
Providers Date of admission: 03/08/23 10:40 Expected date of discharge: 03/10/23 Attending physician: Moira Tatum Consults: 03/06/23 14:03 Consult Physician Routine Consulting Provider: Saleem Daily Consult Reason/Comments: a fib rvr Do you want consulting provider notified?: Yes Primary care physician: Moira Rc [facility] Course: Discharge diagnosis Atrial fibrillation with rapid ventricular response Previous admission in December 2022 with a new onset atrial fibrillation, patient convert to normal sinus rhythm at that time, he is maintained on Eliquis Underlying history of hypertension Underlying history of hyperlipidemia Underlying history of diabetes mellitus type 2 Underlying history of hypothyroidism Hospital course Bonilla Khan, is an 82-year-old male who presented to [facility] emergency room with a chief complaint of worsening shortness of breath. He was evaluated in the emergency room vital examination on presentation revealed a temperature of 96.6 pulse 158 respiration 18 blood pressure 134/81 pulse ox 98% on room air Laboratory data revealed a white blood count of 11.7 hemoglobin 15.2 platelet count 144 sodium 141 potassium 4.8 chloride 104 CO2 23 BUN 17 creatinine 0.7 and glucose was elevated at 299 troponin was less than 0.012 BNP 2300 TSH 3.3 Testing in the emergency room revealed chest x-ray done in the emergency room revealed no evidence for acute pulmonary disease, EKG done in the emergency room revealed atrial fibrillation with rapid ventricular response with a heart rate of 148 Patient was admitted to medical floor for further evaluation and treatment Past medical history is significant for history of hypertension, history of hyperlipidemia, history of hypothyroidism, history of [id number] diabetes mellitus, previous admission in December 2022 with new onset atrial fibrillation at that time patient converted to normal sinus rhythm. On review of systems patient is alert and oriented 3 in no apparent distress there is no fever or chills no headache or dizziness no chest pain no cough no nausea or vomiting no abdominal pain no diarrhea no blood in the stools no burning with urination no frequency or urgency and no hematuria. There is no weakness or numbness in any of the extremities no change in vision speech or gait. On 03/07/2023 patient was seen and examined on the telemetry floor, he is alert and oriented 3 in no apparent distress, he states he is feeling better with less shortness of breath, he was evaluated earlier by cardiology, IV Cardizem was discontinued and he was started on IV amiodarone drip, there is no fever or chills no headache or dizziness no chest pain no shortness of breath no cough no nausea or vomiting no abdominal pain no diarrhea and no urinary symptoms, will continue with current care awaiting further recommendation from cardiology. On 03/08/2023 patient is alert and oriented 3 patient remains on IV amiodarone per cardiology services. Patient currently on by mouth eliquis. Current vital signs temp 98.5, heart rate 106, respiratory rate 18, blood pressure 96/66 with a pulse ox 93% on room air. Patient complaining of some mild chest discomfort and shortness of breath. Patient denies nausea vomiting or diarrhea. Patient denies any urinary burning or frequency. On 03/09/2023 patient was seen and examined on the medical floor he is alert and oriented 3 in no apparent distress he stated that his shortness of breath has improved he denies any other symptoms there is no fever or chills no headache or dizziness no chest pain no palpitation no cough no nausea or vomiting no abdominal pain no diarrhea no blood in the stools no burning with urination no frequency or urgency and no hematuria. Patient remains in atrial fibrillation, case was discussed with Dr. Dr. Berumen, plan is for cardioversion in a.m. tomorrow. On 03/10/2023 patient is alert and oriented 3. Patient underwent cardioversion this a.m. that was unsuccessful them return to A. fib with RVR. Discussed case with cardiology team. Patient cleared for discharge later today with tentative plans for outpatient ablation. Amiodarone prescription per cardiology patient also be DC'd on Lasix. Patient will follow up with cardiology services for further management Patient Condition at Discharge: Stable Plan - Discharge Summary Discharge Rx Participant: Yes New Discharge Prescriptions: New Amiodarone [Cordarone] 200 mg PO TID #111 tab Furosemide [Lasix] 40 mg PO DAILY 30 Days #30 tab Continue ALPRAZolam [Xanax] 0.5 mg PO DIRECTED PRN PRN Reason: Insomnia metFORMIN HCL [Glucophage] 1,000 mg PO BID-W/MEALS Pravastatin Sodium [Pravachol] 40 mg PO HS Levothyroxine Sodium [Synthroid] 112 mcg PO DAILY Apixaban [Eliquis] 5 mg PO BID 30 Days #60 tab Mv-Min/Folic/K1/Lycopen/Lutein [Centrum Silver Men Tablet] 1 tab PO DAILY Metoprolol Tartrate [Lopressor] 50 mg PO BID-W/MEALS sitaGLIPtin [Januvia] 100 mg PO DAILY Citrucel Caplets 1 tab PO DAILY glipiZIDE [Glucotrol] 10 mg PO AC-TID Clotrimazole Cream [Lotrimin Cream] 1 applic TOPICAL BID PRN PRN Reason: Rash Discontinued lisinopriL [Zestril] 5 mg PO DAILY Discharge Medication List ALPRAZolam [Xanax] 0.5 mg PO DIRECTED PRN 12/25/22 [History] Citrucel Caplets 1 tab PO DAILY 12/25/22 [History] Levothyroxine Sodium [Synthroid] 112 mcg PO DAILY 12/25/22 [History] Pravastatin Sodium [Pravachol] 40 mg PO HS 12/25/22 [History] glipiZIDE [Glucotrol] 10 mg PO AC-TID 12/25/22 [History] metFORMIN HCL [Glucophage] 1,000 mg PO BID-W/MEALS 12/25/22 [History] sitaGLIPtin [Januvia] 100 mg PO DAILY 12/25/22 [History] Apixaban [Eliquis] 5 mg PO BID 30 Days #60 tab 12/27/22 [Rx] Clotrimazole Cream [Lotrimin Cream] 1 applic TOPICAL BID PRN 03/06/23 [History] Metoprolol Tartrate [Lopressor] 50 mg PO BID-W/MEALS 03/06/23 [History] Mv-Min/Folic/K1/Lycopen/Lutein [Centrum Silver Men Tablet] 1 tab PO DAILY 03/06/23 [History] Amiodarone [Cordarone] 200 mg PO TID #111 tab 03/10/23 [Rx] Furosemide [Lasix] 40 mg PO DAILY 30 Days #30 tab 03/10/23 [Rx] Follow up Appointment(s)/Referral(s): Bhavik Salcedo MD [Medical Doctor] - 1 Week Moira Tatum MD [Primary Care Provider] - 1-2 days Activity/Diet/Wound Care/Special Instructions: Patient will need follow-up with Dr. Berumen for possible ablation Discharge Disposition: HOME SELF-CARE
[2023-03-10 11:31] LABS: Glucose,Whole Blood 236 mg/dL (70-110)
[2023-03-10 11:48] VITALS: RESP 16
--- NOTE | 2023-03-10 12:24 | P.PN ---
Subjective Progress Note Date: 03/10/23 This is Dennis Mathews NP, I'm dictating on behalf of Dr. Berumen's H&P and A&P. Patient was interviewed and examined. Patient is a pleasant 82-year-old male who presented to the hospital with shortness of breath and weakness secondary to A. fib with RVR. Patient underwent electrical cardioversion this morning, which failed after one beat. The patient did revert back into A. fib with RVR near immediately after the cardioversion. There was one short run of normal sinus rhythm after the cardioversion, however the patient did go back in A. fib with RVR, with a heart rate in the 1 teens. It was discussed with the patient the necessary need for ablation, as the patient has been resistant to current medical treatment at this time. Risks and benefits were discussed with the patient, and the patient did agree to go forward with scheduling the ablation. In the meantime, the patient can be discharged home on amiodarone, as well as metoprolol. GENERAL: Well-appearing, well-nourished and in no acute distress. NECK: Supple without JVD or thyromegaly. LUNGS: Breath sounds clear to auscultation bilaterally. Respiration equal and unlabored. No wheezes, rales or rhonchi. HEART: Regular rate and rhythm without murmurs, rubs or gallops. S1 and S2 heard. EXTREMITIES: Normal range of motion, no edema. No clubbing or cyanosis. Peripheral pulses intact and strong. VITALS: Temp 97.5, pulse 103, respirations 16, blood pressure 106/63, O2 saturation 95% on room air TELEMETRY: Atrial fibrillation with rapid ventricular response LABS: No new labs since 03/09/2023 IMPRESSION: 1. Recent new-onset diagnosis of atrial fibrillation 2. Hypertension 3. Hyperlipidemia 4. Type 2 diabetes PLAN: Continue amiodarone 200 mg 3 times a day for one week, then twice a day for one month, then 200 mg daily thereafter. Continue metoprolol 50 twice a day. Discontinue lisinopril. Patient may be discharged later this evening as long as his heart rate remains stable. Objective - Vital Signs Vital signs: Vital Signs Temp 97.5 F L 03/10/23 08:00 Pulse 120 H 03/10/23 11:29 Resp 16 03/10/23 11:29 BP 108/71 03/10/23 11:29 Pulse Ox 97 03/10/23 11:29 FiO2 Intake & Output 03/09/23 03/10/23 03/10/23 18:59 06:59 18:59 Intake Total 540 590 Balance 540 590 Intake: IV 50 Oral 540 540 Other: Voiding Method Toilet Toilet Toilet # Voids 1 2 - Labs CBC & Chem 7: 03/09/23 08:58 03/09/23 08:58 Labs: Abnormal Lab Results - Last 24 Hours (Table) 03/09/23 03/09/23 03/09/23 Range/Units 08:58 16:28 20:14 Sodium 136 L (137-145) mmol/L BUN 22 H (9-20) mg/dL Glucose 288 H (74-99) mg/dL POC Glucose (mg/dL) 174 H 139 H (70-110) mg/dL Total Bilirubin 1.6 H (0.2-1.3) mg/dL Total Protein 6.2 L (6.3-8.2) g/dL 03/10/23 03/10/23 03/10/23 Range/Units 06:08 07:21 11:30 Sodium (137-145) mmol/L BUN (9-20) mg/dL Glucose (74-99) mg/dL POC Glucose (mg/dL) 174 H 188 H 236 H (70-110) mg/dL Total Bilirubin (0.2-1.3) mg/dL Total Protein (6.3-8.2) g/dL
[2023-03-10 15:33] VITALS: BP 99/67; PULSE 124; TEMP 97.8
--- NOTE | 2023-04-02 16:58 | P.EPPROC ---
- EP Procedure Note Electrophysiology Procedure Note: Diagnosis Symptomatic, persistent atrial fibrillation unresponsive to treatment History of cardio myopathy Previous history of immediate recurrence of atrial fibrillation following electrical cardioversion Oral amiodarone was administered and thereafter he was brought down for electrical cardioversion Details At 200 J biphasic shock successfully converted the patient to sinus rhythm but he had immediate recurrence of atrial fibrillation once again Plan Continue anticoagulation Continue amiodarone taper Continue metoprolol 50 g twice daily Hold lisinopril for now Consider A. fib ablation in the future
== END 2023-03-10 16:24 | disposition home or self-care (01) | DRG 310 ==
LOC: EC 11:36 → 6NMEDSUR 14:03 → 3SCARD 16:13 → OBSVTOIN 03-08 10:40
PROVIDERS: ADMIT Internal Medicine; ATTEND Internal Medicine
PROC: 5A2204Z Restoration of Cardiac Rhythm, Single (ICD-10-PCS; principal; 2023-03-10 07:30)
DX: I48.91 Unspecified atrial fibrillation (principal); I10 Essential (primary) hypertension; E78.5 Hyperlipidemia, unspecified; E03.9 Hypothyroidism, unspecified; Z79.01 Long term (current) use of anticoagulants; Z79.890 Hormone replacement therapy; I42.9 Cardiomyopathy, unspecified; Z79.84 Long term (current) use of oral hypoglycemic drugs; Z79.899 Other long term (current) drug therapy; Z88.1 Allergy status to other antibiotic agents
CPT/HCPCS: 36415; 71046; 80053; 83036; 83735; 83880; 84439; 84443; 84481; 84484; 85025; 85610; 85730; 92960; 93005; 94760; 96365; 96366; 96368; 96375; 99291

== ENCOUNTER → 2023-04-09 | Outpatient (CLI) | payer MEDICARE ==
[2023-04-09 16:51] LABS: HCT 44.7 % (39.6-50.0); HGB 15.1 g/dL (13.0-17.0); MCH 36.1 pg (27.0-32.0); MCHC 33.8 g/dL (32.0-37.0); MCV 106.9 FL (80.0-97.0); Mean Platelet Volume 10.2 FL (9.5-12.2); NRBC Per 100 WBC 0 X 10*3/uL (0.00-0.01); Platelet Count 185 X 10*3/uL (140-440); RBC 4.18 X 10*6/uL (4.40-5.60); RDW 14.7 % (11.5-14.5); WBC 9.53 X 10*3/uL (4.50-10.00)
[2023-04-09 17:17] LABS: Blood Urea Nitrogen 22.9 mg/dL (9.0-27.0); Carbon Dioxide 28.5 mmol/L (21.6-31.8); Chloride 101 mmol/L (96-109); Potassium 4.5 mmol/L (3.5-5.5); Sodium 142 mmol/L (135-145)
== END | disposition home or self-care (01) ==
LOC: LABPAT 08:47
PROVIDERS: ATTEND Internal Medicine Clinical Cardiac Electrophysiology
DX: Z01.812 Encounter for preprocedural laboratory examination (principal); I48.0 Paroxysmal atrial fibrillation
CPT/HCPCS: 36415; 80051; 82565; 84520; 85027

== ENCOUNTER 2023-04-22 05:38 | Day surgery (SDC) | payer MEDICARE ==
[2023-04-18 11:51] VITALS: BMI 26.1
[2023-04-22] MEDS: SODIUM CHLORIDE 0.9% 1,000 ML IV ONE ×3 (06:10→10:51)
[2023-04-22 06:31] LABS: Glucose,Whole Blood 223 mg/dL (70-110)
[2023-04-22 06:39] LABS: Basophils # (A) 0.1 k/uL (0-0.2); Basophils % (A) 1 %; Eosinophils # (A) 0.3 k/uL (0-0.7); Eosinophils % (A) 3 %; HCT 42.6 % (39.0-53.0); HGB 15.2 gm/dL (13.0-17.5); Lymphocytes # (A) 2.9 k/uL (1.0-4.8); Lymphocytes % (A) 28 %; MCHC 35.6 g/dL (31.0-37.0); MCV 106.6 fL (80.0-100.0); Macrocytosis Moderate; Mean Platelet Volume 8.4; Monocytes # (A) 0.6 k/uL (0-1.0); Monocytes % (A) 6 %; Neutrophils # (A) 6.2 k/uL (1.3-7.7); Neutrophils % (A) 60 %; Platelet Count 201 k/uL (150-450); RDW 14.2 % (11.5-15.5); WBC 10.3 k/uL (3.8-10.6)
[2023-04-22] MEDS: INSULIN ASPART (NovoLOG) 100 UNIT/ML VIAL SQ ONE (06:40)
[2023-04-22] MEDS ORDERED: MIDAZOLAM 2 MG/2 ML VIAL IV PRN (07:00)
[2023-04-22] MEDS ORDERED: HYDROmorphone 0.5 MG/0.5 ML SYRINGE IVP PRN (07:00)
[2023-04-22] MEDS: APIXABAN 5 MG TAB PO SCH (07:04)
[2023-04-22 07:21] LABS: ALT 21 U/L (4-49); AST 25 U/L (17-59); African American GFR (CKD) >90 (>60 ml/min/1.73 sqM); Albumin 4.1 g/dL (3.5-5.0); Alkaline Phosphatase 110 U/L (38-126); Anion Gap 6 mmol/L; Blood Urea Nitrogen 21 mg/dL (9-20); Calcium 8.5 mg/dL (8.4-10.2); Carbon Dioxide 27 mmol/L (22-30); Chloride 107 mmol/L (98-107); Glucose 240 mg/dL (74-99); Non-African American GFR(CKD) 85 (>60 ml/min/1.73 sqM); Potassium 4.1 mmol/L (3.5-5.1); Sodium 140 mmol/L (137-145); Total Bilirubin 1.2 mg/dL (0.2-1.3); Total Protein 6.9 g/dL (6.3-8.2)
[2023-04-22] MEDS ORDERED: ETOMIDATE 2 MG/ML 10 ML VIAL ONE (07:34)
[2023-04-22] MEDS ORDERED: HEPARIN SODIUM,PORCINE 10,000 UNIT/ML 1 ML VIAL ONE (07:34)
[2023-04-22] MEDS ORDERED: ePHEDrine 50 MG/ML 1 ML VIAL ONE (07:34)
[2023-04-22] MEDS ORDERED: SUCCINYLCHOLINE CHLORIDE 200 MG/10 ML VIAL IV ONE (07:34)
[2023-04-22] MEDS ORDERED: LIDOCAINE 1% INJ 10MG/ML (20 ML MDV) ONE ×2 (07:34→07:52)
[2023-04-22] MEDS ORDERED: PHENYLEPHRINE-0.9% NACL SYG 1,000 MCG/10 ML SYRINGE ONE (07:34)
[2023-04-22] MEDS: HEPARIN SOD,PORK IN 0.45% NACL 25,000 UNIT in 0.45% NACL 1 250ML.BAG IV ONE (07:55)
[2023-04-22] MEDS: LIDOCAINE 1% INJ 10MG/ML (20 ML MDV) SQ ONE (07:59)
[2023-04-22] MEDS: IOPAMIDOL-370 100ML BTL INJ ONE (09:01)
[2023-04-22] MEDS ORDERED: ACETAMINOPHEN TAB 325 MG TAB PO PRN (10:03)
[2023-04-22 10:22] LABS: T4, Free (Free Thyroxine) 2.52 ng/dL (0.78-2.19)
[2023-04-22 10:26] LABS: Glucose,Whole Blood 193 mg/dL (70-110)
--- NOTE | 2023-04-22 11:10 | P.EPPROC ---
- EP Procedure Note Electrophysiology Procedure Note: PROCEDURE A. fib ablation with pulmonary vein isolation, left atrial roof ablation and left atrial septal ablation DIAGNOSIS Persistent atrial fibrillation, symptomatic, refractory to therapy, immediate recurrence of atrial fibrillation post cardioversion Associated atrial fibrillation related cardiomyopathy RESULT No left atrial appendage mass seen on intracardiac echo Mild thickening of the pericardium without effusion Successful A. fib ablation/pulmonary vein isolation of all veins using cryo- ablation Complete entrance block in all 4 veins confirmed Successful left atrial septal ablation Successful left atrial roof ablation No evidence for phrenic nerve injury Esophageal deflection YES, left-sided esophagus PROCEDURE DETAILS Written informed consent prior to procedure. Patient brought to the EP lab. General anesthesia given. Heparin administered. A city maintained above 300 seconds Both groins prepped and draped per protocol and venous sheaths placed. Esophagus intubated, circa catheter for temperature monitoring an endoscope for possible esophageal deflection. Phrenic nerve monitoring performed. Esophageal temperature monitoring performed. Esophageal deflection performed if circa catheter overlapping with the balloon or circa temperature less than 27.5C Intracardiac echocardiography performed. Pericardium evaluated. Left atrial appendage evaluated. Left atrium evaluated along with pulmonary veins Transseptal catheterization performed under fluoroscopic guidance and intracardiac echo guidance Cryoablation sheath exchanged, balloon catheter along with achieve catheter placed in the left atrium. Pulmonary veins isolated in the following sequence: Left superior pulmonary vein followed by left inferior pulmonary vein, followed by right inferior pulmonary vein and lastly right superior pulmonary vein. Phrenic nerve stimulation along with capture thresholds within the SVC and right superior pulmonary vein to identify the phrenic nerve proximity to the cryo- balloon. Pulmonary veins isolated and confirmed with entrance and exit block. Phrenic nerve integrity confirmed at the end of the procedure Ablation of the left atrial roof performed with sequential lesions from the left superior to the right superior pulmonary veins. Ablation of the electrograms confirmed Ablation of the left atrial septum performed with cannulation of the inferior branch of the right superior vein to achieve ablation of the posterior septum of the left atrium. Ablation of electrograms confirmed Diagnostic catheters for the high right atrium, His bundle, coronary sinus placed. LA and RA pressures recorded RA pressure: 12/8 LA pressure: 03/08/11 Diagnostic EP study with coronary sinus pacing and recording Baseline measurements: Sinus cycle length 896 ms,, NV interval 165 ms, QRS 108 ms and QT 478 ms AH 89 ms and HV interval 45 ms Venous sheaths were removed and hemostasis assured with a closure device. Patient extubated and transferred to recovery PROCEDURES PERFORMED Diagnostic EP study CS pacing and recording Left and right transseptal catheterization Catheter the mapping of the tachycardia Intracardiac echocardiography Pulmonary vein isolation with transseptal and comprehensive EPS, [id number] Left atrial roof line, +[id number] Linear ablation, left atrium, +[id number]
--- NOTE | 2023-04-22 11:17 | P.PRLE ---
RE: BillBonilla Hafsa Dear Moira Mr. Khan underwent an A-fib ablation for persistent atrial fibrillation with RVR and atrial fibrillation related cardiomyopathy He failed treatment and had immediate recurrence of atrial fibrillation post cardioversion He underwent successful ablation for A-fib ablation today and did well during the procedure I would recommend reducing the dose of amiodarone to 100 mg p.o. daily for the next 3 months Continuing Eliquis lifelong It is important that his Eliquis should not be held for the next 2 to 3 months post A-fib ablation Thank you for entrusting me with the care of the patient Warm regards Sincerely Donald Berumen
--- NOTE | 2023-04-22 11:24 | P.HPCAR ---
History of Present Illness This is Dr. Berumen dictating an H/P on this patient The patient was interviewed and examined IMPRESSION / ASSESSMENT: Atrial fibrillation with RVR, persistent and symptomatic with heart failure symptoms Atrial fibrillation related cardiomyopathy Immediate recurrence of atrial fibrillation status post electrical cardioversion Diabetes type 2 Hypertension TSH 6.0 and free T4=2.5 Normal TSH in February PLAN: Proceed with A-fib ablation Continue Eliquis Reduce the dose of amiodarone thereafter to 100 mg p.o. daily for 2 months then stop Hold off on any invasive procedure for the next 2 to 3 months that would require stopping Eliquis temporarily Recheck TSH third-generation HPI Patient has very symptomatic atrial fibrillation with heart failure symptoms He had associated cardiomyopathy on initial echo He has failed 2 electrical cardioversions secondary to immediate recurrence of atrial fibrillation post successful cardioversion ROS: No fever chills or rigors, no cough, phlegm or expectoration, no nausea, vomiting or diarrhea, no hematuria, dysuria, no musculoskeletal complaints, no strokes or seizures, no skin lesions. EXAMINATION: 139/74 mmHg pulse rate in the 70s afebrile Breath sounds are clear no rhonchi no crackles Heart sounds S1-S2 normal no murmurs or gallops or rubs Abdomen soft No JVD REVIEW OF LABS, ECG & MEDICAL DATA White count 10,000 Hemoglobin 15 Platelet count 201,000 Normal electrolytes Creatinine 0.8 TSH 6.0 today. In February it was 3.3 Free T4 =2.5 ?? Physical Exam Vitals: Vital Signs Temp Pulse Pulse Resp BP BP Pulse Ox 04/22/23 10:53 77 16 139/74 96 04/22/23 10:40 78 16 144/76 99 04/22/23 10:25 78 16 152/78 99 04/22/23 10:10 97.6 F 77 14 151/81 99 04/22/23 06:35 97.8 F 70 16 158/75 97 Intake and Output 04/21/23 04/22/23 04/22/23 22:59 06:59 14:59 Intake Total 200 868 Balance 200 868 Intake: IV 200 868 Other: Weight 76.3 kg Past Medical History Past Medical History: Atrial Fibrillation, Diabetes Mellitus, Hyperlipidemia, Hypertension, Thyroid Disorder Additional Past Medical History / Comment(s): Recent hospitilation Feb 2023 w/SOB-recent onset A-fib, failed cardioversion, see Dr. Ata Villagomez+P. 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 Past Anesthesia/Blood Transfusion Reactions: No Reported Reaction Smoking Status: Former smoker - Past Family History Father Family Medical History: Cancer Additional Family Medical History / Comment(s): lung cancer Brother(s) Family Medical History: Cancer Additional Family Medical History / Comment(s): skin cancer. Physical Examination Vital Signs Temp Pulse Pulse Resp BP BP Pulse Ox 04/22/23 10:53 77 16 139/74 96 04/22/23 10:40 78 16 144/76 99 04/22/23 10:25 78 16 152/78 99 04/22/23 10:10 97.6 F 77 14 151/81 99 04/22/23 06:35 97.8 F 70 16 158/75 97 Intake and Output 04/21/23 04/22/23 04/22/23 22:59 06:59 14:59 Intake Total 200 868 Balance 200 868 Intake: IV 200 868 Other: Weight 76.3 kg Results 04/22/23 06:15 04/22/23 06:15 Cardiac Enzymes 04/22/23 Range/Units 06:15 AST 25 (17-59) U/L CBC 04/22/23 Range/Units 06:15 WBC 10.3 (3.8-10.6) k/uL RBC 4.00 L (4.30-5.90) m/uL Hgb 15.2 (13.0-17.5) gm/dL Hct 42.6 (39.0-53.0) % Plt Count 201 (150-450) k/uL Comprehensive Metabolic Panel 04/22/23 Range/Units 06:15 Sodium 140 (137-145) mmol/L Potassium 4.1 (3.5-5.1) mmol/L Chloride 107 (98-107) mmol/L Carbon Dioxide 27 (22-30) mmol/L BUN 21 H (9-20) mg/dL Creatinine 0.77 (0.66-1.25) mg/dL Glucose 240 H (74-99) mg/dL Calcium 8.5 (8.4-10.2) mg/dL AST 25 (17-59) U/L ALT 21 (4-49) U/L Alkaline Phosphatase 110 (38-126) U/L Total Protein 6.9 (6.3-8.2) g/dL Albumin 4.1 (3.5-5.0) g/dL Current Medications Generic Name Dose Route Start Last Admin Trade Name Freq PRN Reason Stop Dose Admin Acetaminophen 650 mg 04/22/23 10:03 Acetaminophen Tab 325 Mg Tab PO 05/22/23 10:04 Q6HR PRN Mild Pain (Scale 1 to 3) Alprazolam 0.5 mg 04/22/23 16:00 Alprazolam 0.5 Mg Tab PO 05/22/23 16:01 TID AMANDA Amiodarone HCl 100 mg 04/23/23 09:00 Amiodarone 100 Mg Tab PO 05/23/23 09:01 DAILY AMANDA Apixaban 5 mg 04/22/23 09:00 04/22/23 07:04 Apixaban 5 Mg Tab PO 05/22/23 09:01 5 mg BID [facility] Administration Protocol Apixaban 5 mg 04/22/23 21:00 Apixaban 5 Mg Tab PO 05/22/23 21:01 BID AMANDA Protocol Glipizide 10 mg 04/22/23 12:30 Glipizide 10 Mg Tab PO 05/22/23 12:31 AC-TID AMANDA Hydromorphone HCl 0.5 mg 04/22/23 07:00 Hydromorphone 0.5 Mg/0.5 Ml Syringe IVP 04/22/23 23:00 Q5M PRN Phase 1 or 2 - Pain Control Sodium Chloride 1,000 mls @ 20 mls/hr 04/22/23 05:56 Saline 0.9% IV 05/22/23 05:57 .Q24H AMANDA Lactated Ringer's 1,000 mls @ 20 mls/hr 04/22/23 05:56 Lactated Ringers IV 05/22/23 05:57 .Q24H AMANDA Acetaminophen 1,000 mg/ IV 100 mls @ 400 mls/hr 04/22/23 10:09 Solution IVPB 04/22/23 10:23 ONCE ONE Levothyroxine Sodium 112 mcg 04/23/23 06:30 Levothyroxine 112 Mcg Tab PO 05/23/23 06:31 DAILY@0630 [facility] Linagliptin 5 mg 04/23/23 09:00 Linagliptin 5 Mg Tablet PO 05/23/23 09:01 DAILY [facility] Metoprolol Tartrate 50 mg 04/22/23 17:30 Metoprolol Tartrate 50 Mg Tab PO 05/22/23 17:31 BID-W/MEALS AMANDA Midazolam HCl 2 mg 04/22/23 07:00 Midazolam 2 Mg/2 Ml Vial IV 04/22/23 23:00 ONCE PRN Pre-Op Anxiety Non-Formulary Medication 1,000 mg 04/22/23 17:30 Metformin Hcl [Glucophage] PO 05/22/23 17:31 BID-W/MEALS [facility] Pravastatin Sodium 40 mg 04/22/23 21:00 Pravastatin Sodium 40 Mg Tab PO 05/22/23 21:01 HS [facility] Sodium Chloride 12 ml 04/22/23 10:03 Sodium Chloride 0.9% Flush 10 Ml Syringe IV 05/22/23 10:04 Q12HR PRN Line Flush Intake and Output 04/21/23 04/22/23 04/22/23 22:59 06:59 14:59 Intake Total 200 868 Balance 200 868 Intake: IV 200 868 Other: Weight 76.3 kg 04/22/23 06:15 04/22/23 06:15
[2023-04-22] MEDS: SODIUM CHLORIDE 0.9% 1,000 ML IV SCH (12:30)
[2023-04-22] MEDS: LACTATED RINGERS 1,000 ML IV SCH (12:30)
[2023-04-22] MEDS: ALPRAZolam 0.5 MG TAB PO SCH (15:57)
[2023-04-22] MEDS: ACETAMINOPHEN IV (For NPO) 1,000 MG in EMPTY BAG 1 BAG IVPB ONE (16:01)
[2023-04-22] MEDS: glipiZIDE 10 MG TAB PO SCH (18:11)
[2023-04-22] MEDS: METOPROLOL TARTRATE 50 MG TAB PO SCH (18:11)
[2023-04-22] MEDS: PRAVASTATIN SODIUM 40 MG TAB PO SCH (19:48)
[2023-04-22 21:00] LABS: Glucose,Whole Blood 279 mg/dL (70-110)
[2023-04-22] MEDS ORDERED: APIXABAN 5 MG TAB PO SCH (21:00)
[2023-04-23] MEDS: LEVOTHYROXINE 112 MCG TAB PO SCH (05:51)
--- NOTE | 2023-04-23 07:54 | P.DS ---
Providers Attending physician: Donald Berumen Primary care physician: [facility] Course: Patient is resting comfortably in bed. No chest discomfort no dizziness no lightheadedness Ambulated to the bathroom multiple times no problems Resting comfortably no respiratory distress On examination blood pressure is normal Rhythm is normal Heart sounds S1-S2 normal Lungs are clear no rhonchi or crackles Groins of healed well no hematoma Impression Persistent atrial fibrillation with RVR associated with cardiomyopathy Status post A-fib ablation with PVI septal ablation and roofline Doing well today TSH mildly elevated. Patient was treated with oral amiodarone for the last 2 to 3 months He is also on levothyroxine Plan Discontinue amiodarone completely Continue Eliquis uninterrupted Discharge home today Patient instructed not to stop Eliquis for the next 2 months. He must be on uninterrupted Eliquis Discussed with Dr. Restrepo. Will defer coronary angiography at this time His LV function has actually normalized on intracardiac echo with maintenance of sinus rhythm Patient Condition at Discharge: Stable Plan - Discharge Summary Discharge Rx Participant: Yes New Discharge Prescriptions: Discontinued Amiodarone [Cordarone] 200 mg PO TID #111 tab No Action ALPRAZolam [Xanax] 0.5 mg PO TID metFORMIN HCL [Glucophage] 1,000 mg PO BID-W/MEALS Pravastatin Sodium [Pravachol] 40 mg PO HS Levothyroxine Sodium [Synthroid] 112 mcg PO DAILY Apixaban [Eliquis] 5 mg PO BID 30 Days #60 tab Mv-Min/Folic/K1/Lycopen/Lutein [Centrum Silver Men Tablet] 1 tab PO DAILY Metoprolol Tartrate [Lopressor] 50 mg PO BID-W/MEALS sitaGLIPtin [Januvia] 100 mg PO DAILY glipiZIDE [Glucotrol] 10 mg PO AC-TID Discharge Medication List ALPRAZolam [Xanax] 0.5 mg PO TID 12/25/22 [History] Levothyroxine Sodium [Synthroid] 112 mcg PO DAILY 12/25/22 [History] Pravastatin Sodium [Pravachol] 40 mg PO HS 12/25/22 [History] glipiZIDE [Glucotrol] 10 mg PO AC-TID 12/25/22 [History] metFORMIN HCL [Glucophage] 1,000 mg PO BID-W/MEALS 12/25/22 [History] sitaGLIPtin [Januvia] 100 mg PO DAILY 12/25/22 [History] Apixaban [Eliquis] 5 mg PO BID 30 Days #60 tab 12/27/22 [Rx] Metoprolol Tartrate [Lopressor] 50 mg PO BID-W/MEALS 03/06/23 [History] Mv-Min/Folic/K1/Lycopen/Lutein [Centrum Silver Men Tablet] 1 tab PO DAILY 03/06/23 [History] Follow up Appointment(s)/Referral(s): Bhavik Salcedo MD [Medical Doctor] - 1 Week Activity/Diet/Wound Care/Special Instructions: Post EP study - Ablation instructions 1. Keep access sites dry for 2 days. 2. No heavy lifting or straining for 2 days. 3. Avoid bending the hips repeatedly for 2 days. 4. You may go up and down stairs slowly Call if the following is noted 1. Bleeding, increasing swelling or pain at the access sites. 2. Increasing chest discomfort, especially upon taking a deep breath. 3. Increasing shortness of breath, at rest or with exertion. 4. Undue cough / phlegm 5. Difficulty or pain while swallowing. 6. Pain or change in color in the extremities. 7. Fever, chills, rigors. 8. Increasing headache or neurologic symptoms. 9. Dizziness, fainting, palpitations Do not stop Eliquis for the next 3 months STOP Amiodarone Discharge Disposition: HOME SELF-CARE
[2023-04-23 08:14] LABS: Glucose,Whole Blood 209 mg/dL (70-110)
[2023-04-23 08:36] VITALS: BP 107/63; PULSE 82; RESP 17; TEMP 98.7
[2023-04-23] MEDS ORDERED: AMIODARONE 100 MG TAB PO SCH (09:00)
[2023-04-23] MEDS: LINAGLIPTIN 5 MG TABLET PO SCH (09:01)
[2023-04-24] MEDS ORDERED: metFORMIN 500 MG TAB PO SCH (07:30)
== END 2023-04-23 12:32 | disposition home or self-care (01) ==
LOC: CATHEP 05:38 → 6NMEDSUR 09:51 → CATHEP 04-23 12:32
PROVIDERS: ATTEND Internal Medicine Clinical Cardiac Electrophysiology
DX: I48.19 Other persistent atrial fibrillation (principal); I42.9 Cardiomyopathy, unspecified; I11.0 Hypertensive heart disease with heart failure; E11.9 Type 2 diabetes mellitus without complications; E78.5 Hyperlipidemia, unspecified; E07.9 Disorder of thyroid, unspecified; Z87.891 Personal history of nicotine dependence; Z85.118 Personal history of other malignant neoplasm of bronchus and lung; Z85.828 Personal history of other malignant neoplasm of skin; Z79.84 Long term (current) use of oral hypoglycemic drugs; Z79.01 Long term (current) use of anticoagulants; Z79.899 Other long term (current) drug therapy
CPT/HCPCS: 93656; 93657; 86900; 86901; 84439; 80053; 84443 ×2; 85025; 86850; C1894 ×2; C1769 ×3; C1760; C1730 ×2; C1759; C1893; C1733; C1766; J2001; Q9967; J1644

== ENCOUNTER → 2023-07-23 | Outpatient (CLI) | payer MEDICARE ==
[2023-07-23 15:46] LABS: NT-Pro-B-Type Natriuretic Pept 258 pg/mL (0-450)
[2023-07-23 15:51] LABS: HCT 43.7 % (39.6-50.0); HGB 14.6 g/dL (13.0-17.0); MCH 37.2 pg (27.0-32.0); MCHC 33.4 g/dL (32.0-37.0); MCV 111.2 FL (80.0-97.0); Mean Platelet Volume 10.5 FL (9.5-12.2); NRBC Per 100 WBC 0 X 10*3/uL (0.00-0.01); Platelet Count 191 X 10*3/uL (140-440); RBC 3.93 X 10*6/uL (4.40-5.60); RDW 13.5 % (11.5-14.5); WBC 9.99 X 10*3/uL (4.50-10.00)
[2023-07-23 16:01] LABS: ALT 13 U/L (10-49); AST 18 U/L (14-35); Albumin 4.3 g/dL (3.8-4.9); Albumin/Globulin Ratio 1.87 Ratio (1.60-3.17); Alkaline Phosphatase 70 U/L (41-126); Blood Urea Nitrogen 16.2 mg/dL (9.0-27.0); Calcium 9.2 mg/dL (8.7-10.3); Carbon Dioxide 24.8 mmol/L (21.6-31.8); Chloride 105 mmol/L (96-109); Chol/HDL Ratio 3.27 Ratio; Globulin 2.3 g/dL (1.6-3.3); Glucose 160 mg/dL (70-110); LDL Cholesterol,Calculated 67.6 mg/dL (0.0-131.0); Sodium 143 mmol/L (135-145); Total Bilirubin 0.8 mg/dL (0.3-1.2); Total Protein 6.6 g/dL (6.2-8.2)
== END | disposition home or self-care (01) ==
LOC: LABWHC1 08:24
PROVIDERS: ATTEND Student in an Organized Health Care Education/Training Program
DX: E11.22 Type 2 diabetes mellitus with diabetic chronic kidney disease (principal); I50.9 Heart failure, unspecified; N18.9 Chronic kidney disease, unspecified
CPT/HCPCS: 36415; 80053; 80061; 83036; 83880; 84443; 85027

== ENCOUNTER → 2023-08-05 | Outpatient (CLI) | payer MEDICARE ==
[2023-08-05 10:25] LABS: HCT 42.7 % (39.6-50.0); MCH 35.6 pg (27.0-32.0); MCHC 32.8 g/dL (32.0-37.0); MCV 108.7 FL (80.0-97.0); NRBC Per 100 WBC 0 X 10*3/uL (0.00-0.01); Platelet Count 224 X 10*3/uL (140-440); RBC 3.93 X 10*6/uL (4.40-5.60); RDW 13.2 % (11.5-14.5); WBC 9.54 X 10*3/uL (4.50-10.00)
[2023-08-05 10:33] LABS: NT-Pro-B-Type Natriuretic Pept 203 pg/mL (0-450)
[2023-08-05 11:34] LABS: ALT 14 U/L (10-49); AST 17 U/L (14-35); Albumin 4.2 g/dL (3.8-4.9); Albumin/Globulin Ratio 1.75 Ratio (1.60-3.17); Alkaline Phosphatase 83 U/L (41-126); BUN/Creat Ratio 19.75 Ratio (12.00-20.00); Blood Urea Nitrogen 15.8 mg/dL (9.0-27.0); Carbon Dioxide 25.4 mmol/L (21.6-31.8); Chloride 108 mmol/L (96-109); Chol/HDL Ratio 3.42 Ratio; Globulin 2.4 g/dL (1.6-3.3); Glucose 193 mg/dL (70-110); LDL Cholesterol,Calculated 96.1 mg/dL (0.0-131.0); Potassium 4.9 mmol/L (3.5-5.5); Sodium 145 mmol/L (135-145); Total Bilirubin 0.5 mg/dL (0.3-1.2); Total Protein 6.6 g/dL (6.2-8.2)
== END | disposition home or self-care (01) ==
LOC: LABWHC1 07:25
PROVIDERS: ATTEND Student in an Organized Health Care Education/Training Program
DX: E11.22 Type 2 diabetes mellitus with diabetic chronic kidney disease (principal); N18.9 Chronic kidney disease, unspecified; D63.1 Anemia in chronic kidney disease; E78.5 Hyperlipidemia, unspecified
CPT/HCPCS: 36415; 80053; 80061; 83036; 83880; 84443; 85027